=== PATIENT | male | born 1950 | race Caucasian/White ===

== ENCOUNTER 2023-08-05 10:02 | Outpatient (POV) | payer MEDICARE, SELFPAY ==
[2023-08-05 10:11] VITALS: BP 105/59; PULSE 59; RESP 18; O2SAT 95; BMI 25.8
--- NOTE | 2023-08-05 10:31 | A.OFFVIS_ITS ---
HPI Data of Consult Patient: new to practice Consult date: 08/05/23 Requesting Physician: Violette Briseno APRN Primary Care Provider: Quentin Jain Consult Narrative Reason for consult: Neck pain, left shoulder, arm numbness tingling History of present illness: Mr. Moore is a 73 year old male who presents today as a new patient. He is a referral from [facility] office. Today he rates his pain a 9 out of 10. Patient states his biggest issue is the numbness and tingling that radiates from his neck on the left side down his arm. Patient states this is constant and does affect his ability perform activities of daily living such as cooking and cleaning. 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 Patient has tried [id number] Tylenol along with heat and ice and topicals with minimal relief. He does state that he uses IcyHot with mild improvement. Patient has had physical therapy for months and states that he is currently taking a break because it physically wears him out. Patient is currently managed with tramadol and gabapentin from an outside provider. He has had an office steroid injections that do help some however typically are only temporarily improved. Patient does have a pacemaker and was previously on blood thinners however has been off of these for a while and is just on an aspirin 81 mg daily. His Guru has been reviewed and is appropriate. CC: Violette Briseno APRN [facility] Disclaimer: The information contained in this section may have been updated after the patient was seen, as this information can be updated by other users. Medical History (Updated 08/05/23 @ 10:53 by Violette Briseno APRN) Kidney stones Osteoarthritis BPH (benign prostatic hyperplasia) GERD (gastroesophageal reflux disease) CVA (cerebral vascular accident) HTN (hypertension) HLD (hyperlipidemia) Diabetes Surgical History (Updated 08/05/23 @ 10:17 by Alejandra Talbert RN) Hx of appendectomy Family History (Updated 08/05/23 @ 10:17 by Alejandra Talbert RN) Other COPD (chronic obstructive pulmonary disease) Social History Smoking Status: Unknown if ever smoked alcohol intake: never current occupational status: retired Travel in the last 8 weeks: None Review of Systems Review of Systems Review of systems:: pertinent systems reviewed and negative unless documented below Review of systems (narrative): Review of Systems: General: No recent weight changes, no fever, no sleep disturbances Respiratory: No cough, no shortness of air, no recurring pulmonary infections Cardiovascular/peripheral vascular: No chest pain, no palpitations, no edema, no shortness of breath Gastrointestinal: No new onset incontinence, normal bowel movements reported Genitourinary: No new onset incontinence Musculoskeletal: Neck pain, left shoulder, left arm numbness tingling Psychiatric: [Normal mood/affect] Neurological: [Denies weakness in extremities], [denies balance issues] Meds Home Medications and Allergies Home Medications Medication Instructions Recorded Confirmed Type atorvastatin 80 mg tablet 80 mg PO DAILY Cholesterol 08/05/23 08/05/23 History gabapentin 100 mg capsule 100 mg PO BID Pain 08/05/23 08/05/23 History glipizide 5 mg tablet, extended 5 mg PO DIRECTED Diabetes 08/05/23 08/05/23 History release 24 hr lisinopril 10 mg tablet 10 mg PO DIRECTED BLOOD PRESSURE 08/05/23 08/05/23 History magnesium oxide 400 mg PO BID 08/05/23 08/05/23 History metformin 500 mg tablet 500 mg PO DIRECTED Diabetes 08/05/23 08/05/23 History sotalol 80 mg tablet 80 mg PO BID BLOOD PRESSURE 08/05/23 08/05/23 History tamsulosin 0.4 mg capsule 0.4 mg PO DIRECTED URINATION 08/05/23 08/05/23 History tramadol 50 mg tablet 50 mg PO TIDP PRN Pain 08/05/23 08/05/23 History New Prescriptions to Start Prescriptions: Allergies Allergy/AdvReac Type Severity Reaction Status Date / Time No Known Allergies Allergy Verified 08/05/23 10:11 Objective Narrative: Physical Exam: General: Alert and oriented x3, no acute distress, pleasant and cooperative Lungs: Respirations even and unlabored, symmetrical chest expansion Eyes: PERRL Musculoskeletal: Flexion and extension of cervical [spine] somewhat guarded secondary to pain, [antalgic gait noted] positive Spurling's test Neurological: Speech clear, no gross sensory deficit Additional findings Additional findings: MRI cervical spine without contrast 11/30/2022 findings: Paraspinal soft tissues are grossly unremarkable. Moderate levoscoliosis of the cervical thoracic column with loss of normal lordosis. Marrow signal generally age-appropriate C2-3: Disc intact neuroforamen patent C3-C4: Degenerative narrowing of the disc with type II degenerative endplate changes. Moderate circumferential disc bulge partially overlaid by hypertrophic endplate spur which is augmented by a left paracentral/foraminal disc protrusion. Results in moderate to severe spinal stenosis narrowing to the canal about 7/8 mm in the midline. Protrusion abuts the cervical cord with contouring. No definite compression. There is moderate right and severe left foraminal stenosis C4-5: Slight narrowing of the disc with grade 1 anterolisthesis of C4. Broad-based right paracentral disc protrusion augmenting a mild circumferential disc bulge. Mild hypertrophic ligamentous changes. These factors produce moderate to severe spinal stenosis narrowing in the canal to 7 to 8 mm. Mild right and moderate left foraminal stenosis. C5-6: No significant disc abnormality. Mild right foraminal stenosis C6-C7: Degenerative narrowing of the disc. Moderate circumferential disc bulge eccentric to the right partially overlaid by endplate spur. Moderate spinal stenosis with canal narrowed to 9 mm. Mild bilateral foraminal stenosis. C7-T1 through T3/4 disc are unremarkable Assessment and Plan *Assessment and plan (1) Degenerative disc disease, cervical: Status: Acute Category: Medical Code(s): M50.30 - Other cervical disc degeneration, unspecified cervical region (2) Cervical radiculopathy: Status: Acute Category: Medical Code(s): M54.12 - Radiculopathy, cervical region Plan Patient is experiencing significant pain throughout his neck along the left side with radiating symptoms into the his left shoulder and upper extremity. Patient did have limited range of motion of his cervical spine and a positive Spurling's test. I have discussed with the patient that he may benefit from cervical epidural steroid injection. Risk and benefits were discussed with patient and he would like to proceed forward with this plan of care. Patient has tried and failed conservative therapy including recent physical therapy and continued at home exercising and stretching. We will schedule the patient for a RORY C6-C7 under fluoroscopy. I will also order the patient a compounded cream. Patient has been instructed to contact the clinic with any concerns before the next appointment. Dr. Simon has reviewed this note and agrees with this plan of care. This note was dictated using voice recognition software and make contain errors or omissions.
== END 2023-08-05 23:59 | disposition home or self-care (01) ==
LOC: SC.PAIN 10:04
PROVIDERS: PCP Physician Assistant; Visit Provider Nurse Practitioner Family
DX: M50.123 Cervical disc disorder at C6-C7 level with radiculopathy (principal)
CPT/HCPCS: 99202; G0463

== ENCOUNTER → 2023-08-23 10:56 | Day surgery (SDC) | payer MEDICARE, SELFPAY ==
[2023-08-23 11:24] VITALS: BP 125/75; PULSE 60; RESP 18; TEMP 36.6; O2SAT 99; BMI 25.8
--- NOTE | 2023-08-23 11:32 | P.PCN_ITS ---
Procedure Date: 08/23/23 Time: 11:45 Anesthesiologist:: James Florentino CRNA Complications:: None Pre-procedure Diagnosis:: Degenerative disc cervical spine multilevels. Cervical radiculopathy. Post-procedure Diagnosis:: Same. Indications for Procedure:: Patient is a very pleasant 73-year-old male that comes our clinic today for cervical epidural steroid injection. Patient reports posterior cervical pain he describes as constant, dull, aching. Patient also reports radicular symptoms in his left shoulder and arm including the fingers. He rates his pain 9/10. Procedure Details:: Procedure:Cervical epidural steroid injection Informed consent was obtained and the risks and benefits of the procedure were explained to the patient. The patient was taken to the procedure room and noninvasive monitors placed, including noninvasive blood pressure cuff and pulse oximeter. The neck was prepped using Chloraprep as a cleansing solution. The C6- C7 interspace was viewed using fluroscopy. The skin and subcutaneous tissues were anesthetized using lidocaine 1.5% and a 25-gauge needle. After this an 18- gauge Touhy epidural needle was placed into the C6-C7 interspace under fluroscopy guidance and advanced using loss of resistance to air until the epidural space was encountered. After confirmation of needle placement in the epidural space using contrast dye, a solution containing normal saline, 2 mL and Depo-Medrol 80 mg was incrementally injected into the cervical epidural space.~ The patient tolerated the procedure well with no complications. The patient was observed in the Pain Clinic and then discharged home neurologically intact. Plan and Disposition:: Patient was discharged without incident.
[2023-08-23] MEDS: IOPAMIDOL-200 (41%);10ML VIAL 10 ML IV (11:41)
[2023-08-23 11:49] VITALS: BP 136/82; PULSE 60; RESP 18; O2SAT 99
== END | disposition home or self-care (01) ==
PROVIDERS: PCP Physician Assistant; Visit Provider Nurse Anesthetist, Certified Registered
DX: M50.123 Cervical disc disorder at C6-C7 level with radiculopathy (principal)
CPT/HCPCS: 62321; Q9966

== ENCOUNTER 2023-09-14 11:16 | Outpatient (POV) | payer MEDICARE, SELFPAY ==
[2023-09-14 11:54] VITALS: BP 123/63; PULSE 60; RESP 16; O2SAT 98; BMI 25.8
--- NOTE | 2023-09-14 12:35 | A.OFFVIS_ITS ---
[facility] Pain Management SOAP Note Subjective:: Patient is a pleasant 73-year-old male who presents today for follow-up of cervical epidural steroid injection C6-C7 on 08/23/2023. Today he rates his pain a 8 out of 10. Patient denies any new trauma or injury. He states he had at least 50% improvement following this injection however states that it only lasted about 3 days. Patient does state he is back to his baseline with aching and throbbing and numbness and weakness all along the left side into his arm and hand. Patient does state the pain interferes with his ability perform activities of daily living such as cooking and cleaning. Patient is interested in repeating his prior injection that he did feel like he moved around easier and had overall improved function during those 3 days. Patient is currently managed with tramadol 50 mg 3 times a day that was prescribed from his primary care however had been prescribed by our office prior to at the [place] location. He states he is officially out of this medication and asking if we can provide refills. He is also prescribed gabapentin from his PCP. His Guru has been reviewed and is appropriate. Review of Systems: General: No recent weight changes, no fever, no sleep disturbances Respiratory: No cough, no shortness of air, no recurring pulmonary infections Cardiovascular/peripheral vascular: No chest pain, no palpitations, no edema, no shortness of breath Gastrointestinal: No new onset incontinence, normal bowel movements reported Genitourinary: No new onset incontinence Musculoskeletal: Neck pain, left arm pain/weakness Psychiatric: [Normal mood/affect] Neurological: [Denies weakness in extremities], [denies balance issues] Objective:: Physical Exam: General: Alert and oriented x3, no acute distress, pleasant and cooperative Lungs: Respirations even and unlabored, symmetrical chest expansion Eyes: PERRL Musculoskeletal: Flexion and extension of cervical [spine] somewhat guarded secondary to pain, [antalgic gait noted] positive Spurling's test Neurological: Speech clear, no gross sensory deficit Assessment:: Degenerative disc disease of cervical spine with cervical radiculopathy symptoms, cervical spinal stenosis, chronic pain syndrome Plan:: Patient did have 50% relief following his cervical epidural lasting 3 days. Patient is back to having worsening pain in his neck with radiating symptoms into his left extremity with numbness and tingling. Patient did have limited range of motion with a positive Spurling's test. I have discussed with the patient that he may benefit from a repeat cervical epidural steroid injection. Risk and benefits were discussed with the patient and he would like to proceed forward with this plan of care. Will refill the patient's tramadol 50 mg 3 times a day and provide a 3-month supply of this medication. Patient will be submitted to insurance for the cervical epidural steroid injection C5-C6 under fluoroscopy. Risks and benefits of the medication have been explained in detail to the patient. The patient does understand the risk of dependence on the medication when given over a prolonged period. Patient has been advised of risks of oversedation with the prescribed medication. Narcan has been offered to the paitent in the event of oversedation. Patient has been advised that a family member should also be educated regarding administration of Narcan. The patient has been advised to consult with his/her primary care provider and pharmacist regarding drug-drug interaction of medications currently prescribed. Patient has been prescribed a controlled substance after being counseled on the medication, medication safety, and possible side effects. Opioid contract was reviewed and signed by the patient, and that they have agreed to all of the terms set forth by our compliance program. Patient has been instructed to contact the clinic with any concerns before the next appointment. Dr. Simon has reviewed this note and agrees with this plan of care. This note was dictated using voice recognition software and make contain errors or omissions. [facility] Disclaimer: The information contained in this section may have been updated after the patient was seen, as this information can be updated by other users. Medical History Kidney stones Osteoarthritis BPH (benign prostatic hyperplasia) GERD (gastroesophageal reflux disease) CVA (cerebral vascular accident) HTN (hypertension) HLD (hyperlipidemia) Diabetes Surgical History Hx of appendectomy Family History Other COPD (chronic obstructive pulmonary disease) Social History Smoking Status: Unknown if ever smoked alcohol intake: never current occupational status: retired Travel in the last 8 weeks: None
== END 2023-09-14 23:59 | disposition home or self-care (01) ==
PROVIDERS: Visit Provider Nurse Practitioner Family
DX: M50.122 Cervical disc disorder at C5-C6 level with radiculopathy (principal); M48.02 Spinal stenosis, cervical region; G89.4 Chronic pain syndrome
CPT/HCPCS: 99212; G0463

== ENCOUNTER 2023-10-04 10:55 | Day surgery (SDC) | payer MEDICARE, SELFPAY ==
[2023-10-04] MEDS: methylPREDNISolone ACETATE 80MG/ML VIAL 80 MG (11:09)
[2023-10-04 11:12] VITALS: BP 117/73; PULSE 64; RESP 18; O2SAT 98; BMI 26.1
[2023-10-04] MEDS: IOPAMIDOL-200 (41%);10ML VIAL 10 ML IV (11:21)
--- NOTE | 2023-10-04 11:22 | P.PCN_ITS ---
Procedure Date: 10/04/23 Time: 11:20 Anesthesiologist:: James Florentino CRNA Complications:: None Pre-procedure Diagnosis:: Degenerative disc cervical spine multilevels. Cervical radiculopathy. Post-procedure Diagnosis:: Same. Indications for Procedure:: Patient is a pleasant 73-year-old male comes our clinic today for cervical epidural steroid injection. Patient reports responding well to previous injections in the cervical spine. Patient describes cervical neck pain as well as bilateral arm radicular symptoms. He rates his pain 7/10. Procedure Details:: Procedure:Cervical epidural steroid injection Informed consent was obtained and the risks and benefits of the procedure were explained to the patient. The patient was taken to the procedure room and noninvasive monitors placed, including noninvasive blood pressure cuff and pulse oximeter. The neck was prepped using Chloraprep as a cleansing solution. The C6- C7 interspace was viewed using fluroscopy. The skin and subcutaneous tissues were anesthetized using lidocaine 1.5% and a 25-gauge needle. After this an 18- gauge Touhy epidural needle was placed into the C6-C7 interspace under fluroscopy guidance and advanced using loss of resistance to air until the epidural space was encountered. After confirmation of needle placement in the epidural space using contrast dye, a solution containing normal saline, 2 mL and Depo-Medrol 80 mg was incrementally injected into the cervical epidural space.~ The patient tolerated the procedure well with no complications. The patient was observed in the Pain Clinic and then discharged home neurologically intact. Plan and Disposition:: Patient was discharged without incident.
[2023-10-04 11:27] VITALS: BP 122/51; PULSE 63; RESP 18; O2SAT 98
== END 2023-10-04 11:28 | disposition home or self-care (01) ==
PROVIDERS: PCP Physician Assistant; Visit Provider Nurse Anesthetist, Certified Registered
DX: M50.10 Cervical disc disorder with radiculopathy, unspecified cervical region (principal)
CPT/HCPCS: 62321; J1010; Q9966

== ENCOUNTER 2023-10-26 09:25 | Outpatient (POV) | payer MEDICARE, SELFPAY ==
--- NOTE | 2023-10-26 10:03 | A.OFFVIS_ITS ---
[facility] Disclaimer: The information contained in this section may have been updated after the patient was seen, as this information can be updated by other users. Medical History (Updated 10/26/23 @ 10:06 by Violette Briseno APRN) Kidney stones Osteoarthritis BPH (benign prostatic hyperplasia) GERD (gastroesophageal reflux disease) CVA (cerebral vascular accident) HTN (hypertension) HLD (hyperlipidemia) Diabetes Surgical History Hx of appendectomy Family History Other COPD (chronic obstructive pulmonary disease) Social History Smoking Status: Unknown if ever smoked alcohol intake: never current occupational status: retired Travel in the last 8 weeks: None PM Subjective & Objective Subjective Subjective:: Patient is a pleasant 73-year-old male who presents today for follow-up of cervical epidural steroid injection C6-C7 on 10/04/2023. Patient does state that he had about 65% relief from this injection however states that it has worn off at this point. Patient rates his pain today an 8 out of 10 and denies any new trauma or injury. He states he still has the stiffness in and around his neck with numbness and tingling that goes down his entire left extremity and does have complaints of chronic left hand swelling that started after his stroke. Patient does state that these injections do improve function however they have only seem to provide temporary relief. Patient states that the pain is constant and he is interested in any help we may be able to provide. Patient is currently managed with tramadol 50 mg 3 times a day and gabapentin from his PCP he states that this medication is only helps minimally. His Guru has been reviewed and is appropriate. Patient has been given compounded cream and states it helps some. Review of Systems: General: No recent weight changes, no fever, no sleep disturbances Respiratory: No cough, no shortness of air, no recurring pulmonary infections Cardiovascular/peripheral vascular: No chest pain, no palpitations, no edema, no shortness of breath Gastrointestinal: No new onset incontinence, normal bowel movements reported Genitourinary: No new onset incontinence Musculoskeletal: Neck pain, left arm numbness tingling Psychiatric: [Normal mood/affect] Neurological: [Denies weakness in extremities], [denies balance issues] Pain at rest (0-10 scale): 8 Objective Objective:: Physical Exam: General: Alert and oriented x3, no acute distress, pleasant and cooperative Lungs: Respirations even and unlabored, symmetrical chest expansion Eyes: PERRL Musculoskeletal: Flexion and extension of cervical [spine] somewhat guarded secondary to pain, [antalgic gait noted] Neurological: Speech clear, no gross sensory deficit Has patient had previous pain injection?: Yes Percent improvement in pain since last injection: 65 Conservative treatment options previously tried: Home exercise plan Length of treatment: Longer than 12 weeks and Prescription medications Length of treatment: Longer than 12 weeks Meds Home Medications and Allergies Home Medications ?Medication ?Instructions ?Recorded ?Confirmed ?Type atorvastatin 80 mg tablet 80 mg PO DAILY Cholesterol 08/05/23 10/04/23 History gabapentin 100 mg capsule 100 mg PO BID Pain 08/05/23 10/04/23 History glipizide 5 mg tablet, extended 5 mg PO DIRECTED Diabetes 08/05/23 10/04/23 History release 24 hr lisinopril 10 mg tablet 10 mg PO DIRECTED BLOOD PRESSURE 08/05/23 10/04/23 History magnesium oxide 400 mg PO BID 08/05/23 10/04/23 History metformin 500 mg tablet 500 mg PO DIRECTED Diabetes 08/05/23 10/04/23 History sotalol 80 mg tablet 80 mg PO BID BLOOD PRESSURE 08/05/23 10/04/23 History tamsulosin 0.4 mg capsule 0.4 mg PO DIRECTED URINATION 08/05/23 10/04/23 History tramadol 50 mg tablet 50 mg PO TIDP PRN Pain #90 tabs 09/14/23 10/04/23 Rx New Prescriptions to Start Prescriptions: Allergies Allergy/AdvReac Type Severity Reaction Status Date / Time No Known Allergies Allergy Verified 10/04/23 11:09 Assessment and Plan *Assessment and plan (1) Cervical radiculopathy: Status: Acute Category: Medical Code(s): M54.12 - Radiculopathy, cervical region (2) Degenerative disc disease, cervical: Status: Acute Category: Medical Code(s): M50.30 - Other cervical disc degeneration, unspecified cervical region (3) CVA (cerebral vascular accident): Status: Acute Qualifiers: CVA mechanism: unspecified Qualified Code(s): I63.9 - Cerebral infarction, unspecified Category: Medical Code(s): I63.9 - Cerebral infarction, unspecified Plan Due to the patient's history of stroke and chronic left-sided weakness with numbness I have discussed with the patient that he may benefit from a spinal cord stimulator trial. Risk and benefits and educational handouts were given at today's visit. Patient and his family would like to proceed forward with this option. Patient has tried and failed conservative therapy including oral medications, heat and ice, topicals, injection therapy, physical therapy, at home stretching exercise for longer than 12 weeks. We will submit for psychological evaluation and if he is deemed an appropriate candidate we will proceed forward with a trial at a later date. Patient will return to clinic in 1 month for reevaluation of symptoms and plan of care. Patient has been instructed to contact the clinic with any concerns before the next appointment. Dr. Simon has reviewed this note and agrees with this plan of care. This note was dictated using voice recognition software and make contain errors or omissions.
[2023-10-26 10:15] VITALS: BP 108/60; PULSE 61; RESP 18; O2SAT 97; BMI 26.3
== END 2023-10-26 23:59 | disposition home or self-care (01) ==
LOC: SC.PAIN 09:26
PROVIDERS: PCP Physician Assistant; Visit Provider Nurse Practitioner Family
DX: M50.10 Cervical disc disorder with radiculopathy, unspecified cervical region (principal)
CPT/HCPCS: 99212; G0463

== ENCOUNTER 2023-11-24 10:29 | Outpatient (POV) | payer MEDICARE, SELFPAY ==
[2023-11-24 11:05] VITALS: BP 111/69; PULSE 59; RESP 18; O2SAT 96; BMI 25.8
--- NOTE | 2023-11-24 12:15 | A.OFFVIS_ITS ---
[facility] Disclaimer: The information contained in this section may have been updated after the patient was seen, as this information can be updated by other users. Medical History (Updated 11/24/23 @ 12:17 by Violette Briseno APRN) Kidney stones Osteoarthritis BPH (benign prostatic hyperplasia) GERD (gastroesophageal reflux disease) CVA (cerebral vascular accident) HTN (hypertension) HLD (hyperlipidemia) Diabetes Surgical History Hx of appendectomy Family History Other COPD (chronic obstructive pulmonary disease) Social History Smoking Status: Unknown if ever smoked alcohol intake: never current occupational status: retired Travel in the last 8 weeks: None PM Subjective & Objective Subjective Subjective:: Patient is a pleasant 73-year-old male who presents today for follow-up of psychological evaluation. Today he rates his pain a 10 out of 10. Patient denies any new trauma or injury. He does state that he continues to have numbness and tingling along his entire left side due to a history of stroke. Patient does state the pain interferes with his ability perform activities of daily living such as cooking and cleaning. He does state that his pain is constant and he does have difficulty walking due to this numbness and tingling and weakness. Patient does state today that he would like to still proceed forward with the stimulator trial. Patient has tried and failed conservative therapy including oral medications, heat and ice, topicals, physical therapy and continued at home exercising and stretching for longer than 12 weeks. Patient is currently managed with tramadol 50 mg 3 times daily from our office and gabapentin from his primary care. He denies any side effects from this medicat ion. Patient does not need refills at this time. Review of Systems: General: No recent weight changes, no fever, no sleep disturbances Respiratory: No cough, no shortness of air, no recurring pulmonary infections Cardiovascular/peripheral vascular: No chest pain, no palpitations, no edema, no shortness of breath Gastrointestinal: No new onset incontinence, normal bowel movements reported Genitourinary: No new onset incontinence Musculoskeletal: Low back pain, left-sided leg pain/weakness, left arm weakness numbness Psychiatric: [Normal mood/affect] Neurological: [Denies weakness in extremities], [denies balance issues] Pain at rest (0-10 scale): 10 Objective Objective:: Physical Exam: General: Alert and oriented x3, no acute distress, pleasant and cooperative Lungs: Respirations even and unlabored, symmetrical chest expansion Eyes: PERRL Musculoskeletal: Flexion and extension of lumbar [spine] somewhat guarded secondary to pain, [antalgic gait noted] Neurological: Speech clear, no gross sensory deficit Has patient had previous pain injection?: No Conservative treatment options previously tried: Home exercise plan Length of treatment: Longer than 12 weeks Meds Home Medications and Allergies Home Medications ?Medication ?Instructions ?Recorded ?Confirmed ?Type atorvastatin 80 mg tablet 80 mg PO DAILY Cholesterol 08/05/23 10/26/23 History gabapentin 100 mg capsule 100 mg PO BID Pain 08/05/23 10/26/23 History glipizide 5 mg tablet, extended 5 mg PO DIRECTED Diabetes 08/05/23 10/26/23 History release 24 hr lisinopril 10 mg tablet 10 mg PO DIRECTED BLOOD PRESSURE 08/05/23 10/26/23 History magnesium oxide 400 mg PO BID 08/05/23 10/26/23 History metformin 500 mg tablet 500 mg PO DIRECTED Diabetes 08/05/23 10/26/23 History sotalol 80 mg tablet 80 mg PO BID BLOOD PRESSURE 08/05/23 10/26/23 History tamsulosin 0.4 mg capsule 0.4 mg PO DIRECTED URINATION 08/05/23 10/26/23 History tramadol 50 mg tablet 50 mg PO TIDP PRN Pain #90 tabs 09/14/23 11/24/23 Rx New Prescriptions to Start Prescriptions: Allergies Allergy/AdvReac Type Severity Reaction Status Date / Time No Known Allergies Allergy Verified 10/04/23 11:09 Assessment and Plan *Assessment and plan (1) Degenerative disc disease, cervical: Status: Acute Category: Medical Code(s): M50.30 - Other cervical disc degeneration, unspecified cervical region (2) Cervical radiculopathy: Status: Acute Category: Medical Code(s): M54.12 - Radiculopathy, cervical region (3) Lumbar radiculopathy: Status: Acute Category: Medical Code(s): M54.16 - Radiculopathy, lumbar region (4) Degenerative disc disease, lumbar: Status: Acute Category: Medical Code(s): M51.36 - Other intervertebral disc degeneration, lumbar region Plan Patient continues to experience significant pain throughout his low back and left leg as well as left arm. I did review over his psychological evaluation and he was deemed an appropriate candidate for the spinal cord stimulator trial. Patient was gone over with the risk and benefits of this procedure and he would like to proceed forward with this plan of care. Patient is not on any blood thinners other than an 81 mg aspirin. Patient has tried and failed conservative therapy including continued at home stretching exercise for longer than 12 weeks. Patient does state that overall his low back and left leg symptoms may be more bothersome than his upper extremities and would like to focus on this area first. We will submit to insurance for the spinal cord stimulator trial under fluoroscopy. Patient has been instructed to contact the clinic with any concerns before the next appointment. Dr. Simon has reviewed this note and agrees with this plan of care. This note was dictated using voice recognition software and make contain errors or omissions. All injections are used with Lidocaine or Bupivacaine and Depo Medrol.
== END 2023-11-24 23:59 | disposition home or self-care (01) ==
LOC: SC.PAIN 10:30
PROVIDERS: PCP Physician Assistant; Visit Provider Nurse Practitioner Family
DX: M50.10 Cervical disc disorder with radiculopathy, unspecified cervical region (principal); M51.16 Intervertebral disc disorders with radiculopathy, lumbar region; Z73.89 Other problems related to life management difficulty; Z86.73 Personal history of transient ischemic attack (TIA), and cerebral infarction without residual deficits
CPT/HCPCS: 99212; G0463

== ENCOUNTER 2024-01-06 09:16 | Outpatient (CLI) | payer MEDICARE, SELFPAY ==
--- NOTE | 2024-01-06 10:09 | ECG_ITS ---
APPROVED REPORT Exam: Resting ECG HR:60 bpm ECG Measurements Heart Rate 60 AXES [place] 189 P 236 QRSd 89 QRS 23 QT 431 T 21 QTc 431 Conclusion ELECTRONIC ATRIAL PACEMAKER ABNORMAL RHYTHM ECG UNCONFIRMED REPORT Electronically signed by : Deep Holloway MD 01/06/2024 15:21:33
[2024-01-06 10:23] LABS: MANUAL DIFFERENTIAL MANUAL DIFFERENTIAL (MANUAL DIFF)
[2024-01-06 10:35] LABS: Basophils % 0.4 % (0.1-2.0); Eosinophils # 0.2 K/mm3 (0.0-0.4); Eosinophils % 2.8 % (0.1-12.0); Hematocrit 43.1 % (42.0-52.0); Hemoglobin 13.2 g/dL (14.1-18.0); Lymphocytes # 2.7 K/mm3 (0.7-4.5); Mean Corpuscular HGB Conc 30.7 g/dL (31.8-35.4); Mean Corpuscular Hemoglobin 31.9 pg (27.0-31.2); Mean Platelet Volume 9.6 fl (7.4-10.4); Monocytes # 0.4 K/mm3 (0.1-1.0); Monocytes % 5.4 % (1.7-9.3); Neutrophils # 3.5 K/mm3 (1.8-7.8); Neutrophils % 51.4 % (37.0-80.0); Platelet Count 168 K/mm3 (142-424); Red Blood Count 4.14 M/mm3 (4.60-6.20); Red Cell Distribution Width 14.2 % (11.5-17.5); White Blood Count 6.8 K/mm3 (4.8-10.8)
[2024-01-06 10:46] LABS: Alanine Aminotransferase 28 U/L (12-78); Albumin Level 3.8 g/dl (3.5-5.0); Albumin/Globulin Ratio 1.1 (1.1-1.8); Alkaline Phosphatase 103 U/L (38-126); Aspartate Amino Transferase 27 U/L (17-59); Bilirubin,Total 0.6 mg/dl (0.2-1.3); Blood Urea Nitrogen 17 mg/dl (9-20); Calcium 10.8 mg/dl (8.4-10.2); Carbon Dioxide 33 mmol/L (22.0-30.0); Chloride 103 mmol/L (98-107); Estimated Glomerular Filt Rate 66 ml/min (>60); GFR (African American) 79 ML/MIN (>60); Globulin 3.5 g/dL (1.3-3.2); Glucose 157 mg/dl (74-100); Sodium 138 mmol/L (136-145); Total Protein,Serum 7.3 g/dl (6.3-8.2)
[2024-01-06 13:13] LABS: Eosinophils % 1 % (0-3); Lymphocytes % 45 % (10-50); Monocytes % 10 % (2-9); Neutrophils % 42 % (42-76); Total Cells Counted 100
[2024-01-06 13:14] LABS: Anisocytosis 1+; Platelet Estimate Normal; Poikilocytosis 1+
[2024-01-06 13:20] LABS: Burr Cells 1+
== END 2024-01-06 23:59 | disposition home or self-care (01) ==
LOC: PREOP 09:17
PROVIDERS: PCP Physician Assistant; Visit Provider Anesthesiology
DX: M54.16 Radiculopathy, lumbar region (principal); Z01.818 Encounter for other preprocedural examination; Z79.899 Other long term (current) drug therapy
CPT/HCPCS: 80053; 85007; 85014; 85018; 85048; 85049; 93005

== ENCOUNTER 2024-01-13 11:37 | Day surgery (SDC) | payer MEDICARE, SELFPAY ==
[2024-01-06 09:50] VITALS: BMI 25.8
[2024-01-13 12:10] LABS: POC Glucose,Bedside 95 (70-110)
[2024-01-13 12:11] VITALS: BP 144/67; PULSE 61; RESP 18; TEMP 36.3; O2SAT 96
[2024-01-13] MEDS: VANCOMYCIN HCL 1,250 MG in 0.9 % SODIUM CHLORIDE 250 ML 125 MG IV (12:23)
[2024-01-13] MEDS: LACTATED RINGERS 1000ML 1,000 ML 25 ML IV (12:23)
[2024-01-13] MEDS: LIDOCAINE 1% W/EPI 1:100,000 20ML VIAL 40 ML (13:22)
[2024-01-13 13:51] VITALS: BP 153/81; PULSE 62; RESP 16; TEMP 36.4; O2SAT 97
[2024-01-13 14:01] VITALS: BP 155/75; PULSE 60; RESP 16; TEMP 36.4; O2SAT 100
[2024-01-13 14:03] VITALS: BP 180/116; PULSE 60; RESP 16; TEMP 36.4; O2SAT 98
[2024-01-13 14:21] VITALS: BP 144/70; PULSE 60; RESP 16; TEMP 36.4; O2SAT 98
--- NOTE | 2024-01-13 14:27 | EXP.OP.NOTE ---
Date of procedure: 01/13/24 Pre-op Diagnosis:: Degenerative disc disease of the cervical spine with cervical radiculopathy symptoms with post stroke symptoms and left arm radicular pain Post-op Diagnosis:: Same Procedure performed:: Spinal cord stimulator trial with epidural lead placement x 2 Surgeon:: Leonel Simon MD APPLICATIONS DEVELOPMENT CONSULTANT:: Denny Zeng Anesthesia: MAC Estimated blood loss (mL): 1 Clinical Note:: This patient is a pleasant 73-year-old white male who we are seeing for neck pain with cervical radicular symptoms. He has also had 2 strokes. He has poststroke pain down his left arm. He has failed all previous conservative treatments including injections, oral medications, physical therapy and he is not a surgical candidate. He has had a successful psychological evaluation. Will plan on spinal cord stimulator trial to see if this will help with his left arm radicular symptoms and neck pain. Operative findings:: None Operative note:: Informed consent was obtained risk and benefits of the procedure were explained to the patient. The patient was taken the operating room placed prone on the procedure table. He was prepped and draped in sterile fashion. C-arm fluoroscopy was used to view the lumbar spine. The skin and subcutaneous tissues were anesthetized using lidocaine. A 17-gauge epidural needle was inserted and advanced into the T12-L1 interspace. After confirmation of needle placement in the epidural space a stimulating lead was inserted and advanced very easily to the C3 C4-C5-C6 vertebral bodies. A second needle was inserted and advanced again into the T12-L1 interspace. Again after confirmation of needle placement in the epidural space a second stimulating lead was inserted and advanced very easily to the C3 C4-C5-C6 vertebral bodies. 1-lead was midline. 1-lead was made left of midline. We did test on the table with good stimulation in all areas of pain. The leads were secured in place the patient was taken recovery in stable condition. The patient underwent programming by the [employer] agency service representative with good stimulation in all areas of pain. They were using the top contacts in the C3-C4 region. Patient was discharged home neurologic intact with good relief of pain symptoms. Plan and disposition: Will follow-up with this patient in 1 week for lead pull. Will assess efficacy of this trial at that time. Condition: stable Disposition: PACU Complications:: None
--- NOTE | 2024-01-13 22:29 | EXP.ANES.CKL ---
[facility] Disclaimer: The information contained in this section may have been updated after the patient was seen, as this information can be updated by other users. Medical History Normal colonoscopy Kidney stones Osteoarthritis BPH (benign prostatic hyperplasia) GERD (gastroesophageal reflux disease) CVA (cerebral vascular accident) HTN (hypertension) HLD (hyperlipidemia) Surgical History History of colonoscopy History of inguinal hernia repair Hx of appendectomy Family History Other COPD (chronic obstructive pulmonary disease) Social History (Updated 01/13/24 @ 12:11 by Marisol Simms RN) Smoking Status: Never smoker alcohol intake: never substance use type: denies use current occupational status: retired Travel in the last 8 weeks: None [facility] Anesthesia Checklist Patient Identification Patient Identification: Arm Band, Family and Verbal (Name & ) Structural Data Admitted From: Home Planned Operative Procedure/s: Neurostimulator Trial Lead Placement Consent for Planned Operative Procedure(s) Verified: Yes Verified Documents: Surgical Consent and History and Physical NPO Status Verified Time NPO: 00:00 Additional verifications Anesthesia Reactions: No Hx Blood Transfusions: No Blood Transfusion Reaction: No Airway Assessment Mallampati Score:: Class II C-Spine Mobility Assessed: Yes TMJ Mobility Assessed: Yes Dentition: Poor Dentition Neurological Assessment Level of Consciousness: Awake, Alert and Appropriate Anesthesia Plan Anesthesia Risk discussed: Yes Anesthesia Plan: Verified ASA Class: III Anesthesia Type: MAC
== END 2024-01-13 14:38 | disposition home or self-care (01) ==
PROVIDERS: PCP Physician Assistant; Visit Provider Anesthesiology
PROC: (CPT 63650; principal; 2024-01-13 12:30)
DX: M50.10 Cervical disc disorder with radiculopathy, unspecified cervical region (principal); Z86.73 Personal history of transient ischemic attack (TIA), and cerebral infarction without residual deficits
CPT/HCPCS: 63650 ×2; 82962; 96374; C1778; J3370; J7120

== ENCOUNTER 2024-01-19 14:56 | Outpatient (POV) | payer MEDICARE, SELFPAY ==
--- NOTE | 2024-01-19 15:10 | EXP.PAIN.SOA ---
[facility] Disclaimer: The information contained in this section may have been updated after the patient was seen, as this information can be updated by other users. Medical History Normal colonoscopy Kidney stones Osteoarthritis BPH (benign prostatic hyperplasia) GERD (gastroesophageal reflux disease) CVA (cerebral vascular accident) HTN (hypertension) HLD (hyperlipidemia) Surgical History History of colonoscopy History of inguinal hernia repair Hx of appendectomy Family History Other COPD (chronic obstructive pulmonary disease) Social History (Updated 01/13/24 @ 22:31 by Chan Smith CRNA) Smoking Status: Never smoker alcohol intake: never substance use type: denies use current occupational status: retired Travel in the last 8 weeks: None PM Subjective & Objective Subjective Subjective:: Patient is a pleasant 73-year-old male who presents today for follow-up of spinal cord stimulator trial. Today he rates his pain a 4 out of 10. Patient denies any new trauma or injury. Patient states that he has had significant improvement following this procedure and feels like this has made a significant difference in his overall function and quality of life. Patient rates at least 70% improvement. He states that it did significantly improve the numbness along his left neck going down into his arm. He states that he did have some areas still present however it was nothing like what it had been. Patient states that he would like to proceed forward with the implant. Patient states that this has been what is giving him the most relief. Patient is currently managed with tramadol 50 mg 3 times daily from our office and gabapentin from his primary care. He denies any side effects from this medication. Patient does not need refills at this time. Review of Systems: General: No recent weight changes, no fever, no sleep disturbances Respiratory: No cough, no shortness of air, no recurring pulmonary infections Cardiovascular/peripheral vascular: No chest pain, no palpitations, no edema, no shortness of breath Gastrointestinal: No new onset incontinence, normal bowel movements reported Genitourinary: No new onset incontinence Musculoskeletal: Low back pain, left-sided leg pain/weakness, left arm weakness numbness Psychiatric: [Normal mood/affect] Neurological: [Denies weakness in extremities], [denies balance issues] Pain at rest (0-10 scale): 4 Objective Objective:: Physical Exam: General: Alert and oriented x3, no acute distress, pleasant and cooperative Lungs: Respirations even and unlabored, symmetrical chest expansion Eyes: PERRL Musculoskeletal: Flexion and extension of cervical [spine] somewhat guarded secondary to pain, [antalgic gait noted] Neurological: Speech clear, no gross sensory deficit Has patient had previous pain injection?: Yes Percent improvement in pain since last injection: 70 Conservative treatment options previously tried: Home exercise plan Length of treatment: Longer than 12 weeks Meds Home Medications and Allergies Home Medications ?Medication ?Instructions ?Recorded ?Confirmed ?Type atorvastatin 80 mg tablet 80 mg PO DAILY Cholesterol 08/05/23 01/13/24 History gabapentin 100 mg capsule 100 mg PO AM Pain 08/05/23 01/13/24 History magnesium oxide 400 mg PO DAILY 08/05/23 01/06/24 History sotalol 80 mg tablet 80 mg PO BID BLOOD PRESSURE 08/05/23 01/13/24 History tamsulosin 0.4 mg capsule 0.4 mg PO DIRECTED URINATION 08/05/23 01/13/24 History tramadol 50 mg tablet 50 mg PO TIDP PRN Pain #90 tabs 09/14/23 01/13/24 Rx aspirin 81 mg capsule 81 mg PO DAILY 01/06/24 01/13/24 History gabapentin 300 mg capsule 300 mg PO PM 01/13/24 01/13/24 History (Neurontin) loratadine 10 mg tablet (Claritin) 10 mg PO NEEDED PRN Allergic 01/13/24 01/13/24 History Symptoms meclizine 25 mg tablet 25 mg PO DAILY 01/13/24 01/13/24 History New Prescriptions to Start Prescriptions: Allergies Allergy/AdvReac Type Severity Reaction Status Date / Time No Known Allergies Allergy Verified 01/13/24 12:46 Assessment and Plan *Assessment and plan (1) Degenerative disc disease, lumbar: Status: Acute Category: Medical Code(s): M51.36 - Other intervertebral disc degeneration, lumbar region (2) Lumbar radiculopathy: Status: Acute Category: Medical Code(s): M54.16 - Radiculopathy, lumbar region (3) CVA (cerebral vascular accident): Status: Acute Qualifiers: CVA mechanism: unspecified Qualified Code(s): I63.9 - Cerebral infarction, unspecified Category: Medical Code(s): I63.9 - Cerebral infarction, unspecified (4) Degenerative disc disease, cervical: Status: Acute Category: Medical Code(s): M50.30 - Other cervical disc degeneration, unspecified cervical region (5) Cervical radiculopathy: Status: Acute Category: Medical Code(s): M54.12 - Radiculopathy, cervical region Plan Patient has had significant improvement following his spinal cord stimulator and would like to proceed forward with the stimulator implant. Patient has tried and failed conservative therapy including oral medications, heat and ice, topicals, physical therapy and continued at home exercising and stretching for longer than 12 weeks. I will also send in refills of his tramadol and provide a 1 month supply of this medication. We will submit for the spinal cord stimulator implant and contact the patient with official date and time once we have approval. Patient agrees with this plan of care. Patient has been instructed to contact the clinic with any concerns before the next appointment. Dr. Simon has reviewed this note and agrees with this plan of care. This note was dictated using voice recognition software and make contain errors or omissions. All injections are used with Lidocaine or Bupivacaine and Depo Medrol.
[2024-01-19 15:27] VITALS: BP 154/91; PULSE 62; RESP 18; O2SAT 97; BMI 25.8
== END 2024-01-19 23:59 | disposition home or self-care (01) ==
PROVIDERS: PCP Physician Assistant; Visit Provider Nurse Practitioner Family
DX: I63.9 Cerebral infarction, unspecified; M51.16 Intervertebral disc disorders with radiculopathy, lumbar region; M50.10 Cervical disc disorder with radiculopathy, unspecified cervical region
CPT/HCPCS: 99212; 99213; G0463

== ENCOUNTER 2024-03-09 12:14 | Outpatient (CLI) | payer MEDICARE, SELFPAY ==
[2024-03-09 13:16] VITALS: BMI 26.6
[2024-03-09 14:35] LABS: Chloride 106 mmol/L (98-107)
[2024-03-09 14:36] LABS: Potassium 4.2 mmoL/L (3.5-5.1); Sodium 142 mmol/L (136-145)
[2024-03-09 14:39] LABS: Anion Gap 8.2 mEq/L (5-15); Blood Urea Nitrogen 15 mg/dl (9-20); Calcium 10.9 mg/dl (8.4-10.2); Carbon Dioxide 32 mmol/L (22.0-30.0); Creatinine Clearance Estimated 58 mL/min (50-200); Estimated Glomerular Filt Rate 59 ml/min (>60); GFR (African American) 72 ML/MIN (>60); Glucose 149 mg/dl (74-100)
[2024-03-09 14:44] LABS: Basophils % 0.6 % (0.1-2.0); Eosinophils # 0.1 K/mm3 (0.0-0.4); Eosinophils % 1.7 % (0.1-12.0); Hematocrit 37.3 % (42.0-52.0); Hemoglobin 12.6 g/dL (14.1-18.0); Lymphocytes # 2.1 K/mm3 (0.7-4.5); Lymphocytes % 33.3 % (10-50); Mean Corpuscular HGB Conc 33.7 g/dL (31.8-35.4); Mean Corpuscular Hemoglobin 32.9 pg (27.0-31.2); Mean Corpuscular Volume 97.6 fl (80-94); Mean Platelet Volume 10.7 fl (7.4-10.4); Monocytes # 0.3 K/mm3 (0.1-1.0); Monocytes % 5.4 % (1.7-9.3); Neutrophils # 3.7 K/mm3 (1.8-7.8); Platelet Count 179 K/mm3 (142-424); Red Blood Count 3.82 M/mm3 (4.60-6.20); Red Cell Distribution Width 14.1 % (11.5-17.5); White Blood Count 6.3 K/mm3 (4.8-10.8)
== END 2024-03-09 23:59 | disposition home or self-care (01) ==
LOC: PREOP 12:16
PROVIDERS: Nurse Anesthetist, Certified Registered; PCP Physician Assistant; Visit Provider Anesthesiology
DX: M54.12 Radiculopathy, cervical region (principal)
CPT/HCPCS: 80048; 85025

== ENCOUNTER 2024-03-16 08:31 | Day surgery (SDC) | payer MEDICARE, SELFPAY ==
[2024-03-09 12:58] VITALS: BMI 26.6
--- NOTE | 2024-03-16 08:55 | EXP.ANES.CKL ---
[facility] Disclaimer: The information contained in this section may have been updated after the patient was seen, as this information can be updated by other users. Medical History (Updated 03/09/24 @ 12:55 by Lisandro Morton RN) Pacemaker Normal colonoscopy Kidney stones Osteoarthritis BPH (benign prostatic hyperplasia) GERD (gastroesophageal reflux disease) CVA (cerebral vascular accident) HTN (hypertension) HLD (hyperlipidemia) Surgical History History of colonoscopy History of inguinal hernia repair Hx of appendectomy Family History Other COPD (chronic obstructive pulmonary disease) Social History (Updated 03/09/24 @ 12:57 by Lisandro Morton RN) Smoking Status: Never smoker alcohol intake: never substance use type: denies use current occupational status: retired Travel in the last 8 weeks: None Have you lived/traveled outside US in past 30 days?: No Contact w/someone who lives/traveled outside US past 30 days?: No Exposure to someone with infectious disease in past 14 days?: No Do you have a fever (greater than 100.4 F or 38 C)?: No Have you tested positive for COVID-19: No Exposed to someone with COVID-19 in past 14 days?: No Do you have a sore throat?: No Do you have a cough?: No Do you have any weakness?: No Do you have any diarrhea?: No Are you experiencing any unusual bleeding?: No Do you have any muscle aches/pain?: No Do you have any abdominal pain?: No Are you experiencing loss of taste or smell?: No [facility] Anesthesia Checklist Patient Identification Patient Identification: Arm Band, Family and Verbal (Name & ) Structural Data Admitted From: Home Planned Operative Procedure/s: SC stim implants Consent for Planned Operative Procedure(s) Verified: Yes Verified Documents: Surgical Consent and History and Physical NPO Status Verified Time NPO: 19:00 Chart Verification Results Verified: CBC, BMP and ECG Additional verifications Patient : No Anesthesia Reactions: No Hx Blood Transfusions: No Blood Transfusion Reaction: No Cardiovascular Assessment Heart Sounds: S1 & S2 Pulse Rhythm: Irregular Peripheral Edema: No Airway Assessment Mallampati Score:: Class II C-Spine Mobility Assessed: Yes TMJ Mobility Assessed: Yes Dentition: Poor Dentition (~4 teeth present. Nothing loose per pt.) Neurological Assessment Level of Consciousness: Awake, Alert, Appropriate and Follows Commands Hx Seizures: No Numbness or tingling in extremities: No Anesthesia Plan Anesthesia Risk discussed: Yes Anesthesia Plan: Verified ASA Class: III Anesthesia Type: MAC
[2024-03-16 08:58] VITALS: BP 142/73; PULSE 60; RESP 16; TEMP 36.4; O2SAT 97
[2024-03-16] MEDS: LACTATED RINGERS 1000ML 1,000 ML 25 ML IV (09:06)
[2024-03-16] MEDS: VANCOMYCIN/WATER FOR INJ (PEG) 1.25 GM/250 ML PIGGYBACK IV (09:07)
[2024-03-16 09:15] LABS: POC Glucose,Bedside 119 (70-110)
[2024-03-16] MEDS: LIDOCAINE 1% W/EPI 1:100,000 20ML VIAL 40 ML (11:36)
[2024-03-16] MEDS: GENTAMICIN 80 MG/2 ML VIAL (11:37)
[2024-03-16] MEDS: SODIUM CHLORIDE 0.9% 20ML VIAL 40 ML IV (11:37)
[2024-03-16 12:15] VITALS: BP 144/72; PULSE 63; RESP 18; TEMP 36.2; O2SAT 96
[2024-03-16 12:25] VITALS: BP 128/74; PULSE 62; RESP 18; O2SAT 96
[2024-03-16 12:35] VITALS: BP 128/68; PULSE 63; RESP 18; O2SAT 96
[2024-03-16 13:40] VITALS: BP 125/72; PULSE 60; RESP 18; O2SAT 95
--- NOTE | 2024-03-16 14:52 | P.OP_ITS ---
Date of procedure: 03/16/24 Pre-op Diagnosis:: Degenerative disc disease of the cervical spine with cervical radiculopathy symptoms Post-op Diagnosis:: Same Procedure performed:: Permanent placement spinal cord stimulator with epidural lead placement x 2 and stimulator generator placement Surgeon:: Leonel Simon MD SENIOR MAINTENANCE MECHANIC:: Latashabennie Lemus Anesthesia: MAC Estimated blood loss (mL): 5 Clinical Note:: This patient is a pleasant 73-year-old white male who we are treating for neck pain with cervical radicular symptoms and headaches. He has failed all previous conservative treatments including injections, oral medications, physical therapy and he is not a candidate for surgery. He has had a successful psychological evaluation and a successful spinal cord stimulator trial. He presents for permanent placement of a spinal cord stimulator today. This is with the [employer] system. Operative findings:: None Operative note:: Informed consent was obtained and the risk and benefits of the procedure were explained to the patient. The patient was taken the operating room placed prone on the procedure table. He was prepped and draped in sterile fashion. C-arm f luoroscopy was used to view the lumbar spine. Adjacent to the L1-L2 interspace the skin and subcutaneous tissues were anesthetized using lidocaine. I made an incision dissected down to the lumbar paraspinous fascia. A 17-gauge epidural needle was inserted and advanced into the L1-L2 interspace after confirmation of needle placement in the epidural space a stimulating lead was inserted and with the aid of a percutaneous lead introducer we advanced the lead to the C2-C3-C4 vertebral bodies. Lead was in good position it was right of midline and posterior. A second needle was inserted and advanced again into the L1-L2 interspace. Again after confirmation of needle placement in the epidural space a second stimulator lead was inserted and with the aid of a percutaneous lead introducer we advanced the lead to the C2-C3-C4 vertebral body. Again the lead was in good position it was left of midline and it was posterior. The needles and stylets were removed the leads were secured to the fascia with an anchor device and 2-0 Prolene. I created the generator pocket on the right flank. I tunneled the leads from the back to the generator pocket attached to leads to the generator. Impedances were checked and found to be okay. The generator is placed in the pocket both incisions were irrigated antibiotic solution. Both incisions were then closed with 2-0 Vicryl followed by 4-0 nylon and idris. The patient tolerated the procedure well with no complications. Patient was programmed by the [employer] automotive leasing sales representative with good stimulation in all areas of pain. Patient was discharged home neurologic intact with good relief of pain symptoms. Plan and disposition: Will follow-up with this patient in 1 week for wound check and reprogramming. Will follow-up in 2 to 3 weeks for suture and staple removal. Condition: stable Disposition: PACU Complications:: none
== END 2024-03-16 13:40 | disposition home or self-care (01) ==
PROVIDERS: PCP Physician Assistant; Visit Provider Anesthesiology
PROC: (CPT 63650; principal; 2024-03-16 09:30)
DX: M50.10 Cervical disc disorder with radiculopathy, unspecified cervical region (principal)
CPT/HCPCS: 63650 ×2; 63685; 82962; 96374; C1778; C1820; J1580; J3010; J3372; J7120; S0028

== ENCOUNTER 2024-03-23 14:18 | Outpatient (POV) | payer MEDICARE, SELFPAY ==
[2024-03-23 15:04] VITALS: BP 116/76; PULSE 76; RESP 14; O2SAT 92; BMI 26.6
--- NOTE | 2024-03-23 15:25 | A.OFFVIS_ITS ---
[facility] Disclaimer: The information contained in this section may have been updated after the patient was seen, as this information can be updated by other users. Medical History Pacemaker Normal colonoscopy Kidney stones Osteoarthritis BPH (benign prostatic hyperplasia) GERD (gastroesophageal reflux disease) CVA (cerebral vascular accident) HTN (hypertension) HLD (hyperlipidemia) Surgical History History of colonoscopy History of inguinal hernia repair Hx of appendectomy Family History Other COPD (chronic obstructive pulmonary disease) Social History Smoking Status: Never smoker alcohol intake: never substance use type: denies use current occupational status: other Travel in the last 8 weeks: None PM Subjective & Objective Subjective Subjective:: Patient is a pleasant 73-year-old male who presents today for 1 week postop of spinal cord stimulator implant. Today he rates his pain a 3 out of 10. He denies any injury or trauma following his surgical procedure. He does state the programming is working well however he is meeting with [employer] civil rights representative for additional programming. Patient does state the numbness has seemed to improve from having this placed. Patient is currently managed with tramadol 50 mg 3 times daily and states that this does help additionally. His Guru has been reviewed and is appropriate. Review of Systems: General: No recent weight changes, no fever, no sleep disturbances Respiratory: No cough, no shortness of air, no recurring pulmonary infections Cardiovascular/peripheral vascular: No chest pain, no palpitations, no edema, no shortness of breath Gastrointestinal: No new onset incontinence, normal bowel movements reported Genitourinary: No new onset incontinence Musculoskeletal: Low back pain, neck pain Psychiatric: [Normal mood/affect] Neurological: [Denies weakness in extremities], [denies balance issues] Pain at rest (0-10 scale): 3 Objective Objective:: Physical Exam: General: Alert and oriented x3, no acute distress, pleasant and cooperative Lungs: Respirations even and unlabored, symmetrical chest expansion Eyes: PERRL Musculoskeletal: Flexion and extension of lumbar [spine] somewhat guarded secondary to pain, [antalgic gait noted] Neurological: Speech clear, no gross sensory deficit Skin: Incision sites are clean, dry, well-approximated with sutures and idris intact and minimal erythema noted Has patient had previous pain injection?: No Conservative treatment options previously tried: Home exercise plan Length of treatment: Longer than 12 weeks Meds Home Medications and Allergies Home Medications ?Medication ?Instructions ?Recorded ?Confirmed ?Type atorvastatin 80 mg tablet 80 mg PO DAILY Cholesterol 08/05/23 03/23/24 History gabapentin 100 mg capsule 100 mg PO AM Pain 08/05/23 03/23/24 History magnesium oxide 400 mg PO DAILY 08/05/23 03/23/24 History sotalol 80 mg tablet 80 mg PO BID BLOOD PRESSURE 08/05/23 03/23/24 History tamsulosin 0.4 mg capsule 0.4 mg PO DIRECTED URINATION 08/05/23 03/23/24 History aspirin 81 mg capsule 81 mg PO DAILY 01/06/24 03/23/24 History gabapentin 300 mg capsule 300 mg PO PM 01/13/24 03/23/24 History (Neurontin) loratadine 10 mg tablet (Claritin) 10 mg PO NEEDED PRN Allergic 01/13/24 03/23/24 History Symptoms tramadol 50 mg tablet 50 mg PO TIDP PRN Pain #90 tabs 01/19/24 03/23/24 Rx New Prescriptions to Start Prescriptions: Allergies Allergy/AdvReac Type Severity Reaction Status Date / Time No Known Allergies Allergy Verified 03/16/24 08:56 Assessment and Plan *Assessment and plan (1) Degenerative disc disease, lumbar: Status: Acute Category: Medical Code(s): M51.369 - Other intervertebral disc degeneration, lumbar region without mention of lumbar back pain or lower extremity pain (2) Lumbar radiculopathy: Status: Acute Category: Medical Code(s): M54.16 - Radiculopathy, lumbar region (3) Degenerative disc disease, cervical: Status: Acute Category: Medical Code(s): M50.30 - Other cervical disc degeneration, unspecified cervical region (4) CVA (cerebral vascular accident): Status: Acute Qualifiers: CVA mechanism: unspecified Qualified Code(s): I63.9 - Cerebral infarction, unspecified Category: Medical Code(s): I63.9 - Cerebral infarction, unspecified (5) Cervical radiculopathy: Status: Acute Category: Medical Code(s): M54.12 - Radiculopathy, cervical region Plan Patient was counseled to continue his postop restrictions the full 6 weeks. Patient was able to be reprogrammed by [employer] civil rights representative with better coverage. Patient will also be refilled on his tramadol with the 3-month supply of this medication prescribed. Patient will return to clinic in 2 weeks for suture and staple removal. Risks and benefits of the medication have been explained in detail to the patient. The patient does understand the risk of dependence on the medication when given over a prolonged period. Patient has been advised of risks of oversedation with the prescribed medication. Narcan has been offered to the paitent in the event of oversedation. Patient has been advised that a family member should also be educated regarding administration of Narcan. The patient has been advised to consult with his/her primary care provider and pharmacist regarding drug-drug interaction of medications currently prescribed. Patient has been prescribed a controlled substance after being counseled on the medication, medication safety, and possible side effects. Opioid contract was reviewed and signed by the patient, and that they have agreed to all of the terms set forth by our compliance program. A UDS is needed to verify patient's compliance with our office pain contract. This is ordered based off specific treatments related to chronic pain with the potential to abuse certain medications. Patient has been instructed to contact the clinic with any concerns before the next appointment. Dr. Simon has reviewed this note and agrees with this plan of care. This note was dictated using voice recognition software and make contain errors or omissions.
== END 2024-03-23 23:59 | disposition home or self-care (01) ==
PROVIDERS: PCP Physician Assistant; Visit Provider Nurse Practitioner Family
DX: I63.9 Cerebral infarction, unspecified (principal); M51.16 Intervertebral disc disorders with radiculopathy, lumbar region; M50.10 Cervical disc disorder with radiculopathy, unspecified cervical region
CPT/HCPCS: 99212; G0463

== ENCOUNTER 2024-04-12 13:22 | Outpatient (POV) | payer MEDICARE, SELFPAY ==
--- NOTE | 2024-04-12 13:36 | EXP.PAIN.SOA ---
[facility] Disclaimer: The information contained in this section may have been updated after the patient was seen, as this information can be updated by other users. Medical History Pacemaker Normal colonoscopy Kidney stones Osteoarthritis BPH (benign prostatic hyperplasia) GERD (gastroesophageal reflux disease) CVA (cerebral vascular accident) HTN (hypertension) HLD (hyperlipidemia) Surgical History History of colonoscopy History of inguinal hernia repair Hx of appendectomy Family History Other COPD (chronic obstructive pulmonary disease) Social History Smoking Status: Never smoker alcohol intake: never substance use type: denies use current occupational status: other Travel in the last 8 weeks: None PM Subjective & Objective Subjective Subjective:: Patient is a pleasant 73-year-old male who presents today for 3 week postop of spinal cord stimulator implant. Today he rates his pain a 8 out of 10. He denies any injury or trauma from our last visit. He did state that he has [employer] stimulator still working well with the current programming however states it could use some additional adjustment.. Patient is currently managed with tramadol 50 mg 3 times daily and states that this does help additionally. His Guru has been reviewed and is appropriate. Review of Systems: General: No recent weight changes, no fever, no sleep disturbances Respiratory: No cough, no shortness of air, no recurring pulmonary infections Cardiovascular/peripheral vascular: No chest pain, no palpitations, no edema, no shortness of breath Gastrointestinal: No new onset incontinence, normal bowel movements reported Genitourinary: No new onset incontinence Musculoskeletal: Low back pain, neck pain Psychiatric: [Normal mood/affect] Neurological: [Denies weakness in extremities], [denies balance issues] Pain at rest (0-10 scale): 8 Objective Objective:: Physical Exam: General: Alert and oriented x3, no acute distress, pleasant and cooperative Lungs: Respirations even and unlabored, symmetrical chest expansion Eyes: PERRL Musculoskeletal: Flexion and extension of lumbar [spine] somewhat guarded secondary to pain, [antalgic gait noted] Neurological: Speech clear, no gross sensory deficit Has patient had previous pain injection?: No Conservative treatment options previously tried: Home exercise plan Length of treatment: Longer than 12 weeks Meds Home Medications and Allergies Home Medications ?Medication ?Instructions ?Recorded ?Confirmed ?Type atorvastatin 80 mg tablet 80 mg PO DAILY Cholesterol 08/05/23 03/23/24 History gabapentin 100 mg capsule 100 mg PO AM Pain 08/05/23 03/23/24 History magnesium oxide 400 mg PO DAILY 08/05/23 03/23/24 History sotalol 80 mg tablet 80 mg PO BID BLOOD PRESSURE 08/05/23 03/23/24 History tamsulosin 0.4 mg capsule 0.4 mg PO DIRECTED URINATION 08/05/23 03/23/24 History aspirin 81 mg capsule 81 mg PO DAILY 01/06/24 03/23/24 History gabapentin 300 mg capsule 300 mg PO PM 01/13/24 03/23/24 History (Neurontin) loratadine 10 mg tablet (Claritin) 10 mg PO NEEDED PRN Allergic 01/13/24 03/23/24 History Symptoms tramadol 50 mg tablet 50 mg PO TID #90 tabs 03/23/24 Rx tramadol 50 mg tablet 50 mg PO TIDP PRN Pain #90 tabs 03/23/24 Rx New Prescriptions to Start Prescriptions: Allergies Allergy/AdvReac Type Severity Reaction Status Date / Time No Known Allergies Allergy Verified 03/16/24 08:56 Assessment and Plan *Assessment and plan (1) Lumbar radiculopathy: Status: Acute Category: Medical Code(s): M54.16 - Radiculopathy, lumbar region (2) Degenerative disc disease, lumbar: Status: Acute Category: Medical Code(s): M51.369 - Other intervertebral disc degeneration, lumbar region without mention of lumbar back pain or lower extremity pain Plan Patient was able to have his idris and sutures removed during today's visit. We did summer counselor him to continue his postop restrictions the full 6 weeks until his incisions are completely healed. Patient acknowledges understanding. Patient was given a 3-month supply of the tramadol at his last visit and does not need refills. Patient will return to clinic in 1 month for reevaluation of symptoms and plan of care. We will also make sure that [employer] is present for this appointment for additional reprogramming. Patient has been instructed to contact the clinic with any concerns before the next appointment. Dr. Simon has reviewed this note and agrees with this plan of care. This note was dictated using voice recognition software and make contain errors or omissions. All injections are used with Lidocaine, Bupivacaine and Depo Medrol. Occasionally urine drug screen is needed to verify patient's compliance with our office pain contract. This is ordered based off specific treatments related to chronic pain with the potential to abuse certain medications.
[2024-04-12 14:50] VITALS: BP 106/60; PULSE 64; RESP 16; O2SAT 96; BMI 25.8
== END 2024-04-12 23:59 | disposition home or self-care (01) ==
LOC: SC.PAIN 13:24
PROVIDERS: PCP Physician Assistant; Visit Provider Nurse Practitioner Family
DX: M51.16 Intervertebral disc disorders with radiculopathy, lumbar region (principal)
CPT/HCPCS: 99212; 99213; G0463

== ENCOUNTER 2024-05-11 14:07 | Outpatient (POV) | payer MEDICARE, SELFPAY ==
--- NOTE | 2024-05-11 14:16 | EXP.PAIN.SOA ---
[facility] Disclaimer: The information contained in this section may have been updated after the patient was seen, as this information can be updated by other users. Medical History Pacemaker Normal colonoscopy Kidney stones Osteoarthritis BPH (benign prostatic hyperplasia) GERD (gastroesophageal reflux disease) CVA (cerebral vascular accident) HTN (hypertension) HLD (hyperlipidemia) Surgical History History of colonoscopy History of inguinal hernia repair Hx of appendectomy Family History Other COPD (chronic obstructive pulmonary disease) Social History Smoking Status: Never smoker alcohol intake: never substance use type: denies use current occupational status: other Travel in the last 8 weeks: None Have you lived/traveled outside [place] in past 30 days?: No Contact w/someone who lives/traveled outside [place] past 30 days?: No Exposure to someone with infectious disease in past 14 days?: No Do you have a fever (greater than 100.4 F or 38 C)?: No Have you tested positive for COVID-19: No Exposed to someone with COVID-19 in past 14 days?: No Do you have a sore throat?: No Do you have a cough?: No Do you have any weakness?: No Do you have any diarrhea?: No Are you experiencing any unusual bleeding?: No Do you have any muscle aches/pain?: No Do you have any abdominal pain?: No Are you experiencing loss of taste or smell?: No PM Subjective & Objective Subjective Subjective:: Patient is a pleasant 73-year-old male who presents today for follow-up. Today he rates his pain a 2 out of 10 however does state the pain will get much worse with increased activity. He denies any new trauma or injury. He does state he continues to still have more bothersome numbness in his left upper extremity currently related to the stroke he had years ago. He does state the pain is interfering with his ability perform activities of daily living such as cooking and cleaning. He also makes mention that he still has trouble getting up walking for long periods of time. he does present today for additional reprogramming with [employer] on his spinal cord stimulator. He is also managed with tramadol 50 mg 3 times a day from our office. He denies any side effects and does state that this does seem to help. His Guru has been reviewed and is appropriate. Review of Systems: General: No recent weight changes, no fever, no sleep disturbances Respiratory: No cough, no shortness of air, no recurring pulmonary infections Cardiovascular/peripheral vascular: No chest pain, no palpitations, no edema, no shortness of breath Gastrointestinal: No new onset incontinence, normal bowel movements reported Genitourinary: No new onset incontinence Musculoskeletal: Low back pain, left-sided numbness Psychiatric: [Normal mood/affect] Neurological: [Denies weakness in extremities], [denies balance issues] Pain at rest (0-10 scale): 5 Objective Objective:: Physical Exam: General: Alert and oriented x3, no acute distress, pleasant and cooperative Lungs: Respirations even and unlabored, symmetrical chest expansion Eyes: PERRL Musculoskeletal: Flexion and extension of cervical [spine] somewhat guarded secondary to pain, [antalgic gait noted] positive Spurling's test Neurological: Speech clear, no gross sensory deficit Has patient had previous pain injection?: No Conservative treatment options previously tried: Home exercise plan Length of treatment: Longer than 12 weeks Meds Home Medications and Allergies Home Medications ?Medication ?Instructions ?Recorded ?Confirmed ?Type atorvastatin 80 mg tablet 80 mg PO DAILY Cholesterol 08/05/23 05/11/24 History gabapentin 100 mg capsule 100 mg PO AM Pain 08/05/23 05/11/24 History magnesium oxide 400 mg PO DAILY 08/05/23 05/11/24 History sotalol 80 mg tablet 80 mg PO BID BLOOD PRESSURE 08/05/23 05/11/24 History tamsulosin 0.4 mg capsule 0.4 mg PO DIRECTED URINATION 08/05/23 05/11/24 History aspirin 81 mg capsule 81 mg PO DAILY 01/06/24 05/11/24 History gabapentin 300 mg capsule 300 mg PO PM 01/13/24 05/11/24 History (Neurontin) loratadine 10 mg tablet (Claritin) 10 mg PO NEEDED PRN Allergic 01/13/24 05/11/24 History Symptoms tramadol 50 mg tablet 50 mg PO TID #90 tabs 05/11/24 Rx New Prescriptions to Start Prescriptions: tramadol Briseno,Violette A Allergies Allergy/AdvReac Type Severity Reaction Status Date / Time No Known Allergies Allergy Verified 05/11/24 14:32 Assessment and Plan *Assessment and plan (1) Degenerative disc disease, lumbar: Status: Acute Category: Medical Code(s): M51.369 - Other intervertebral disc degeneration, lumbar region without mention of lumbar back pain or lower extremity pain (2) Lumbar radiculopathy: Status: Acute Category: Medical Code(s): M54.16 - Radiculopathy, lumbar region (3) Degenerative disc disease, cervical: Status: Acute Category: Medical Code(s): M50.30 - Other cervical disc degeneration, unspecified cervical region (4) Cervical radiculopathy: Status: Acute Category: Medical Code(s): M54.12 - Radiculopathy, cervical region Plan Patient was able to have his stimulator reprogrammed with better coverage. We will continue to follow-up with him on this programming at future visits. Patient did have more significant with complaints of the numbness and tingling that radiates down the entire left extremity. Patient did have limited range of motion of his cervical spine and a positive Spurling's test. I did discuss with the patient that we can see about repeat cervical epidural steroid injection to provide additional improvement. Patient had his last injection back in October 2023 that did provide 65% improvement and did help ease down some of the symptoms. Patient did have improved function following that and did state that it was beneficial. I will submit to insurance for a repeat RORY C5-C6 under fluoroscopy. I will also send in a physical therapy evaluation and treatment of his low back and leg symptoms due to increased weakness. Patient does like the physical therapy office they are in [facility]. We will send him with a paper order. I will send in an additional refill on his tramadol 50 mg 3 times a day and provide a 3-month supply of this medication. Risks and benefits of the medication have been explained in detail to the patient. The patient does understand the risk of dependence on the medication when given over a prolonged period. Patient has been advised of risks of oversedation with the prescribed medication. Narcan has been offered to the paitent in the event of oversedation. Patient has been advised that a family member should also be educated regarding administration of Narcan. The patient has been advised to consult with his/her primary care provider and pharmacist regarding drug-drug interaction of medications currently prescribed. Patient has been prescribed a controlled substance after being counseled on the medication, medication safety, and possible side effects. Opioid contract was reviewed and signed by the patient, and that they have agreed to all of the terms set forth by our compliance program. A UDS is needed to verify patient's compliance with our office pain contract. This is ordered based off specific treatments related to chronic pain with the potential to abuse certain medications. Patient has been instructed to contact the clinic with any concerns before the next appointment. Dr. Simon has reviewed this note and agrees with this plan of care. This note was dictated using voice recognition software and make contain errors or omissions.
[2024-05-11 14:33] VITALS: BP 109/71; PULSE 63; RESP 16; O2SAT 93; BMI 26.6
== END 2024-05-11 23:59 | disposition home or self-care (01) ==
PROVIDERS: PCP Physician Assistant; Visit Provider Nurse Practitioner Family
DX: M51.16 Intervertebral disc disorders with radiculopathy, lumbar region (principal); M50.10 Cervical disc disorder with radiculopathy, unspecified cervical region; Z73.89 Other problems related to life management difficulty
CPT/HCPCS: 99212; G0463

== ENCOUNTER 2024-06-12 11:53 | Day surgery (SDC) | payer MEDICARE, SELFPAY ==
[2024-06-12 12:03] VITALS: BP 116/68; PULSE 67; RESP 16; TEMP 37.1; O2SAT 95; BMI 26.8
[2024-06-12] MEDS: IOPAMIDOL-200 (41%);10ML VIAL 10 ML IV (12:13)
--- NOTE | 2024-06-12 12:17 | P.PCN_ITS ---
Procedure Date: 06/12/24 Time: 12:10 Anesthesiologist:: James Florentino CRNA Complications:: None Pre-procedure Diagnosis:: Degenerative disc cervical spine multilevels. Cervical radiculopathy. Cervical postlaminectomy syndrome. Cervical spinal cord stimulator. Post-procedure Diagnosis:: Same. Indications for Procedure:: Patient is a very pleasant 73-year-old male who comes our clinic today for cervical epidural steroid injection. Patient describes posterior cervical neck pain as constant, dull, aching. He also reports bilateral shoulder radicular symptoms. Patient does have a functioning cervical spinal cord stimulator. He is requesting a appointment with the spinal cord stimulator rep for reprogramming. We will schedule this for him today. Procedure Details:: Procedure:Cervical epidural steroid injection Informed consent was obtained and the risks and benefits of the procedure were explained to the patient. The patient was taken to the procedure room and noninvasive monitors placed, including noninvasive blood pressure cuff and pulse oximeter. The neck was prepped using Chloraprep as a cleansing solution. The C6- C7 interspace was viewed using fluroscopy. The skin and subcutaneous tissues were anesthetized using lidocaine 1.5% and a 25-gauge needle. After this an 18- gauge Touhy epidural needle was placed into the C6-C7 interspace under fluroscopy guidance and advanced using loss of resistance to air until the e pidural space was encountered. After confirmation of needle placement in the epidural space using contrast dye, a solution containing normal saline, 2 mL and Depo-Medrol 80 mg was incrementally injected into the cervical epidural space.~ The patient tolerated the procedure well with no complications. The patient was observed in the Pain Clinic and then discharged home neurologically intact. Plan and Disposition:: Patient was discharged without incident.
[2024-06-12 12:25] VITALS: BP 111/61; PULSE 61; RESP 16; O2SAT 96
[2024-06-12 14:16] VITALS: BP 118/76; PULSE 70; RESP 18; O2SAT 96
[2024-06-12] MEDS: methylPREDNISolone ACETATE 80MG/ML VIAL 80 MG (14:16)
[2024-06-12 14:18] VITALS: BP 118/76; PULSE 70; RESP 18; O2SAT 96
== END 2024-06-12 12:25 | disposition home or self-care (01) ==
PROVIDERS: PCP Physician Assistant; Visit Provider Nurse Anesthetist, Certified Registered
DX: M50.30 Other cervical disc degeneration, unspecified cervical region (principal); M54.12 Radiculopathy, cervical region; M96.1 Postlaminectomy syndrome, not elsewhere classified; Z96.82 Presence of neurostimulator
CPT/HCPCS: 62321; J1010; Q9966

== ENCOUNTER 2024-06-27 14:38 | Outpatient (POV) | payer MEDICARE, SELFPAY ==
[2024-06-27 14:57] VITALS: BP 119/62; PULSE 62; RESP 14; O2SAT 97; BMI 33.4
--- NOTE | 2024-06-27 15:13 | A.OFFVIS_ITS ---
[facility] Disclaimer: The information contained in this section may have been updated after the patient was seen, as this information can be updated by other users. Medical History Pacemaker Normal colonoscopy Kidney stones Osteoarthritis BPH (benign prostatic hyperplasia) GERD (gastroesophageal reflux disease) CVA (cerebral vascular accident) HTN (hypertension) HLD (hyperlipidemia) Surgical History History of colonoscopy History of inguinal hernia repair Hx of appendectomy Family History Other COPD (chronic obstructive pulmonary disease) Social History Smoking Status: Never smoker alcohol intake: never substance use type: denies use current occupational status: other Travel in the last 8 weeks: None PM Subjective & Objective Subjective Subjective:: Patient is a pleasant 73-year-old male who presents today for spinal cord stimulator adjustments as well as follow-up for cervical epidural steroid injection C6-C7 on 06/12/2024. Today he rates his pain a 4 out of 10. He denies any new falls or injuries. He does state that he did get approximately 80% improvement following this injection and feels like it is still working. He was also able to meet with [employer] public service representative for additional reprogramming. Patient is currently managed with tramadol 50 mg 3 times a day from our office. He denies any side effects from this medication. He does state that he is really only taking this primarily once a day and that on really bad days he will take it 2 times. Patient is unsure if he needs any refills. His Guru has been reviewed and is appropriate. Review of Systems: General: No recent weight changes, no fever, no sleep disturbances Respiratory: No cough, no shortness of air, no recurring pulmonary infections Cardiovascular/peripheral vascular: No chest pain, no palpitations, no edema, no shortness of breath Gastrointestinal: No new onset incontinence, normal bowel movements reported Genitourinary: No new onset incontinence Musculoskeletal: Left-sided numbness arm and leg Psychiatric: [Normal mood/affect] Neurological: [Denies weakness in extremities], [denies balance issues] Pain at rest (0-10 scale): 4 Objective Objective:: Physical Exam: General: Alert and oriented x3, no acute distress, pleasant and cooperative Lungs: Respirations even and unlabored, symmetrical chest expansion Eyes: PERRL Musculoskeletal: Flexion and extension of cervical [spine] somewhat guarded secondary to pain, [antalgic gait noted] Neurological: Speech clear, no gross sensory deficit Has patient had previous pain injection?: Yes Percent improvement in pain since last injection: 80% Conservative treatment options previously tried: Home exercise plan Length of tr eatment: Longer than 12 weeks Meds Home Medications and Allergies Home Medications ?Medication ?Instructions ?Recorded ?Confirmed ?Type atorvastatin 80 mg tablet 80 mg PO DAILY Cholesterol 08/05/23 06/27/24 History gabapentin 100 mg capsule 100 mg PO AM Pain 08/05/23 06/27/24 History magnesium oxide 400 mg PO DAILY 08/05/23 06/27/24 History sotalol 80 mg tablet 80 mg PO BID BLOOD PRESSURE 08/05/23 06/27/24 History tamsulosin 0.4 mg capsule 0.4 mg PO DIRECTED URINATION 08/05/23 06/27/24 History aspirin 81 mg capsule 81 mg PO DAILY 01/06/24 06/27/24 History gabapentin 300 mg capsule 300 mg PO PM 01/13/24 06/27/24 History (Neurontin) loratadine 10 mg tablet (Claritin) 10 mg PO NEEDED PRN Allergic 01/13/24 06/27/24 History Symptoms tramadol 50 mg tablet 50 mg PO TID #90 tabs 05/11/24 06/27/24 Rx New Prescriptions to Start Prescriptions: Allergies Allergy/AdvReac Type Severity Reaction Status Date / Time No Known Allergies Allergy Verified 05/11/24 14:32 Assessment and Plan *Assessment and plan (1) Degenerative disc disease, lumbar: Status: Acute Category: Medical Code(s): M51.369 - Other intervertebral disc degeneration, lumbar region without mention of lumbar back pain or lower extremity pain (2) Lumbar radiculopathy: Status: Acute Category: Medical Code(s): M54.16 - Radiculopathy, lumbar region (3) Degenerative disc disease, cervical: Status: Acute Category: Medical Code(s): M50.30 - Other cervical disc degeneration, unspecified cervical region (4) CVA (cerebral vascular accident): Status: Acute Qualifiers: CVA mechanism: unspecified Qualified Code(s): I63.9 - Cerebral infarction, unspecified Category: Medical Code(s): I63.9 - Cerebral infarction, unspecified (5) Cervical radiculopathy: Status: Acute Category: Medical Code(s): M54.12 - Radiculopathy, cervical region Plan Patient is doing really well currently between the cervical epidural and we will see how the updated time contour programming does with his stimulator. I will make sure that he does have refills on his tramadol and I am going to change the dosage to twice a day as he no longer needs the 3 times a day. Patient will return to clinic in 1 month for reevaluation of symptoms and plan of care. Patient has been instructed to contact the clinic with any concerns before the next appointment. Dr. Simon has reviewed this note and agrees with this plan of care. This note was dictated using voice recognition software and make contain errors or omissions. All injections are used with Lidocaine, Bupivacaine and Depo Medrol. Occasionally urine drug screen is needed to verify patient's compliance with our office pain contract. This is ordered based off specific treatments related to chronic pain with the potential to abuse certain medications.
== END 2024-06-27 23:59 | disposition home or self-care (01) ==
PROVIDERS: PCP Physician Assistant; Visit Provider Nurse Practitioner Family
DX: M51.16 Intervertebral disc disorders with radiculopathy, lumbar region (principal); M50.10 Cervical disc disorder with radiculopathy, unspecified cervical region; I63.9 Cerebral infarction, unspecified
CPT/HCPCS: 99212; G0463

== ENCOUNTER 2024-07-25 09:44 | Outpatient (POV) | payer MEDICARE, SELFPAY ==
--- NOTE | 2024-07-25 10:44 | A.OFFVIS_ITS ---
[facility] Disclaimer: The information contained in this section may have been updated after the patient was seen, as this information can be updated by other users. Medical History Pacemaker Normal colonoscopy Kidney stones Osteoarthritis BPH (benign prostatic hyperplasia) GERD (gastroesophageal reflux disease) CVA (cerebral vascular accident) HTN (hypertension) HLD (hyperlipidemia) Surgical History History of colonoscopy History of inguinal hernia repair Hx of appendectomy Family History Other COPD (chronic obstructive pulmonary disease) Social History Smoking Status: Never smoker alcohol intake: never substance use type: denies use current occupational status: other Travel in the last 8 weeks: None PM Subjective & Objective Subjective Subjective:: Patient is a pleasant 74-year-old male who presents today for 1 month follow-up. Today he rates his pain a 4 out of 10. He denies any new injury or trauma. He is does state that overall he is doing well with his [employer] stimulator as well as with the tramadol 50 mg 3 times a day. He does state typically he does more 1-2 times per day and feels like this does really help. He does also state that he has gotten the new machine that he stands on and it does almost like electrical shock sensations into his feet and it does help with his lower extremity pain. He denies any other changes from her last appointment. His Guru has been reviewed and is appropriate. Review of Systems: General: No recent weight changes, no fever, no sleep disturbances Respiratory: No cough, no shortness of air, no recurring pulmonary infections Cardiovascular/peripheral vascular: No chest pain, no palpitations, no edema, no shortness of breath Gastrointestinal: No new onset incontinence, normal bowel movements reported Genitourinary: No new onset incontinence Musculoskeletal: Low back pain, leg pain Psychiatric: [Normal mood/affect] Neurological: [Denies weakness in extremities], [denies balance issues] Pain at rest (0-10 scale): 4 Objective Objective:: Physical Exam: General: Alert and oriented x3, no acute distress, pleasant and cooperative Lungs: Respirations even and unlabored, symmetrical chest expansion Eyes: PERRL Musculoskeletal: Flexion and extension of lumbar [spine] somewhat guarded secondary to pain, [antalgic gait noted] Neurological: Speech clear, no gross sensory deficit Has patient had previous pain injection?: No Conservative treatment options previously tried: Home exercise plan Length of treatment: Longer than 12 weeks Meds Home Medications and Allergies Home Medications ?Medication ?Instructions ?Recorded ?Confirmed ?Type atorvastatin 80 mg tablet 80 mg PO DAILY Cholesterol 08/05/23 06/27/24 History gabapentin 100 mg capsule 100 mg PO AM Pain 08/05/23 06/27/24 History magnesium oxide 400 mg PO DAILY 08/05/23 06/27/24 History sotalol 80 mg tablet 80 mg PO BID BLOOD PRESSURE 08/05/23 06/27/24 History tamsulosin 0.4 mg capsule 0.4 mg PO DIRECTED URINATION 08/05/23 06/27/24 History aspirin 81 mg capsule 81 mg PO DAILY 01/06/24 06/27/24 History gabapentin 300 mg capsule 300 mg PO PM 01/13/24 06/27/24 History (Neurontin) loratadine 10 mg tablet (Claritin) 10 mg PO NEEDED PRN Allergic 01/13/24 06/27/24 History Symptoms tramadol 50 mg tablet 50 mg PO TID #90 tabs 05/11/24 06/27/24 Rx New Prescriptions to Start Prescriptions: Allergies Allergy/AdvReac Type Severity Reaction Status Date / Time No Known Allergies Allergy Verified 05/11/24 14:32 Assessment and Plan *Assessment and plan (1) Lumbar radiculopathy: Status: Acute Category: Medical Code(s): M54.16 - Radiculopathy, lumbar region (2) Degenerative disc disease, lumbar: Status: Acute Category: Medical Code(s): M51.369 - Other intervertebral disc degeneration, lumbar region without mention of lumbar back pain or lower extremity pain (3) Cervical radiculopathy: Status: Acute Category: Medical Code(s): M54.12 - Radiculopathy, cervical region (4) Degenerative disc disease, cervical: Status: Acute Category: Medical Code(s): M50.30 - Other cervical disc degeneration, unspecified cervical region (5) CVA (cerebral vascular accident): Status: Acute Qualifiers: CVA mechanism: unspecified Qualified Code(s): I63.9 - Cerebral in farction, unspecified Category: Medical Code(s): I63.9 - Cerebral infarction, unspecified Plan Patient is doing well with his current stimulator programming and does not require any additional interventions at this time. I will make sure he has refills on his tramadol. Patient will return to clinic in 3 months. Patient has been instructed to contact the clinic with any concerns before the next appointment. Dr. Simon has reviewed this note and agrees with this plan of care. This note was dictated using voice recognition software and make contain errors or omissions. All injections are used with Lidocaine, Bupivacaine and dexamethasone. Occasionally urine drug screen is needed to verify patient's compliance with our office pain contract. This is ordered based off specific treatments related to chronic pain with the potential to abuse certain medications.
[2024-07-25 11:04] VITALS: BP 113/66; PULSE 60; RESP 14; O2SAT 97; BMI 25.8
== END 2024-07-25 23:59 | disposition home or self-care (01) ==
PROVIDERS: PCP Physician Assistant; Visit Provider Nurse Practitioner Family
DX: M51.16 Intervertebral disc disorders with radiculopathy, lumbar region (principal); M50.10 Cervical disc disorder with radiculopathy, unspecified cervical region; I63.9 Cerebral infarction, unspecified
CPT/HCPCS: 99212; G0463

== ENCOUNTER 2024-10-24 10:08 | Outpatient (POV) | payer MEDICARE, SELFPAY ==
--- OUTSIDE RECORDS SUMMARY | 2024-10-24 10:10 | XMS_ITS | Data Portability ---
Author Organization [place] [facility] Address [address] [place] [address] Care Team Providers Care Production Welder Name Role Phone BANG SANTIZO Primary Care Provider RASHAD PIMENTEL Urologist Assessment No assessment recorded. Plan of Treatment Reminders Order Date Submit Date Provider Last Modified By Organization Details Last Modified Time Details Appointments None recorded. Lab influenza virus A + B + SARS-CoV-2 (COVID19) Ag panel, rapid IA, upper respiratory specimen 2024 025 [email or web address] 40 [facility], [address] [place] [address], [address], 5 16:44:36 lipid panel, serum [address]), [address] [place] [address] [place], [address], 5 07:02:23 HbA1c (hemoglobin A1c), blood [address]), [address] [place] [address] [place], [address], 5 07:02:23 CMP, serum or plasma 2024 025 [facility]), [address] [place] [address] [place], [address], 5 19:51:31 CBC w/ auto diff 2024 025 [facility]), [address] [place] [address] [place], [address], 5 18:13:41 vitamin D, 25-hydroxy, total, serum [address]), [address] [place] [address] [place], [address], 5 07:02:23 PSA, serum or plasma 2024 025 [facility]), [address] [place] [address] [place], [address], 5 19:51:34 Referral None recorded. Procedures injection/a spiration joint/bursa (PROC) - anterior aspect of the left shoulder was cleansed with a alcohol based solution. Injection of 80 mg of Depo-Medrol mixed with lidocaine into the anterior shoulder joint. Also into the biceps tendon and found out into the anterior labrum. Once this was completed the area was cleansed off and covered with a Band-Aid. 2023 024 [email or web address] Not available 4 07:08:07 Surgeries None recorded. Imaging None recorded. Medication Orders ipratropium 0.5 mg-albutero l 3 mg (2.5 mg base)/3 mL nebulizatio n soln 2024 025 [place] [facility], [address] [place], [address], 5 15:05:29 dexamethaso ne sodium phosphate 4 mg/mL injection solution 2024 025 [email or web address] [facility], [address] [place], [address], 5 14:57:41 ceftriaxone 1 gram solution for injection 2024 025 [email or web address] [facility], [address] [place], [address], 5 14:58:32 doxycycline hyclate 100 mg capsule 2024 025 [facility], [address] [place], [address], 5 15:04:35 Paxlovid 300 mg (150 mg x 2)-100 mg tablets in a dose pack 2024 025 [facility], [address] [place], [address], 5 14:47:28 atorvastati n 80 mg tablet 2024 025 [facility], [address] [place], [address], 5 10:58:10 Contour Next Test Strips 2024 025 [facility], [address] [place], [address], 5 16:40:53 sotalol 80 mg tablet 2024 025 [facility], [address] [place], [address], 5 14:53:40 tamsulosin 0.4 mg capsule 2024 025 [facility], [address] [place], [address], 5 14:53:54 gabapentin 100 mg capsule 2023 024 [facility], [address] [place], [address], 14:45:25 gabapentin 300 mg capsule 2023 024 [place] [facility], [address] [place], [address], 14:45:31 Depo-Medrol 80 mg/mL suspension for injection 2023 [email or web address] Not available 13:57:31 atorvastati n 80 mg tablet 2023 024 [place] [facility], [address] [place], [address], 11:28:11 Patient TargetsNo targets recorded. Patient Instructions Encounter Date Encounter Id Patient Instructions Last Modified By Organization Details Last Modified Time 02/01/2024 [id number] Very lengthy discussion regarding the probability of no improvement with the use of a brace for his lower extremity. I will be happy to refer him to [facility] if he wishes. He is going to speak with his about this. He was inquiring about the cost of the device and I am unable to give him any that information. [email or web address] Not available 02/01/2024 14:24:07 06/06/2024 [id number] he has nebulizer machine at home and I recommend that he start treatments 3-4 times daily. He was given a due set of nebulizer tubes at the office [email or web address] Not available 06/06/2024 15:26:13 Reason for Referral None Reported. Results Created Date Observation Date Name Description Value Unit Range Abnormal Flag Note LastModifiedBy Organization Detail LastModifiedTime 05/28/1905/28/2024 CBC WITH AUTO DIFF WBC 7.4 10 4.5-11 .5 Not Available [facility] (Lab) [address] [facility] [place], [address], 05/28/2024 18:13:41 05/28/19 25 05/28/2024 CBC WITH AUTO DIFF RBC 3.81 10 4.60-6 .00 low Not Available [facility] (Lab) [address] [facility] [place], [address], 05/28/2024 18:13:41 05/28/19 25 05/28/2024 CBC WITH AUTO DIFF hemoglobin 12.3 g/dL 14.0-1 8.0 low Not Available [facility] (Lab) [address] [facility] [place], [address], 05/28/2024 18:13:41 05/28/19 25 05/28/2024 CBC WITH AUTO DIFF hematocrit 38.9 % 40.0-5 4.0 low Not Available [facility] (Lab) [address] [facility] [place], [address], 05/28/2024 18:13:41 05/28/19 25 05/28/2024 CBC WITH AUTO DIFF MCV 102.1 fL 80-100 high Not Available [facility] (Lab) [address] [facility] [place], [address], 05/28/2024 18:13:41 05/28/19 25 05/28/2024 CBC WITH AUTO DIFF MCH 32.3 pg 26-32 high Not Available [facility] (Lab) [address] [facility] [place], [address], 05/28/2024 18:13:41 05/28/19 25 05/28/2024 CBC WITH AUTO DIFF MCHC 31.6 g/dL 32-36 low Not Available [facility] (Lab) [address] [facility] [place], [address], 05/28/2024 18:13:41 05/28/19 25 05/28/2024 CBC WITH AUTO DIFF RDW 13.2 % 11.5-1 4.5 Not Available [facility] (Lab) [address] [facility] [place], [address], 05/28/2024 18:13:41 05/28/19 25 05/28/2024 CBC WITH AUTO DIFF platelet count 115 10 150-45 0 low Not Available [facility] (Lab) [address] [facility] [place], [address], 05/28/2024 18:13:41 05/28/19 25 05/28/2024 CBC WITH AUTO DIFF mean platelet volume 11.9 fL 6.8-10 .2 high Not Available [facility] (Lab) [address] [facility] [place], [address], 05/28/2024 18:13:41 05/28/19 25 05/28/2024 CBC WITH AUTO DIFF manual differential NOT INDICA NITIN Not Available [facility] (Lab) [address] [facility] [place], [address], 05/28/2024 18:13:41 05/28/19 25 05/28/2024 CBC WITH AUTO DIFF ne% 46.3 % 50-70 low Not Available [facility] (Lab) [address] [facility] [place], [address], 05/28/2024 18:13:41 05/28/19 25 05/28/2024 CBC WITH AUTO DIFF lymphs 43.6 % 18-42 high Not Available [facility] (Lab) [address] [facility] [place], [address], 05/28/2024 18:13:41 05/28/19 25 05/28/2024 CBC WITH AUTO DIFF MO% 6.6 % 2-11 Not Available [facility] (Lab) [address] [facility] [place], [address], 05/28/2024 18:13:41 05/28/19 25 05/28/2024 CBC WITH AUTO DIFF eo% 3.0 % 1-3 Not Available [facility] (Lab) [address] [facility] [place], [address], 05/28/2024 18:13:41 05/28/19 25 05/28/2024 CBC WITH AUTO DIFF ba% 0.4 % 0.0-2. 0 Not Available [facility] (Lab) [address] [facility] [place], [address], 05/28/2024 18:13:41 05/28/19 25 05/28/2024 CBC WITH AUTO DIFF neutrophils (absolute) 3.4 K/uL 2.0-6. 9 Not Available [facility] (Lab) [address] [facility] [place], [address], 05/28/2024 18:13:41 05/28/19 25 05/28/2024 CBC WITH AUTO DIFF lymphocytes (absolute) 3.2 K/uL 0.6-3. 4 Not Available [facility] (Lab) [address] [facility] [place], [address], 05/28/2024 18:13:41 05/28/19 25 05/28/2024 CBC WITH AUTO DIFF monocytes (absolute) 0.5 K/uL 0.0-0. 9 Not Available [facility] (Lab) [address] [facility] [place], [address], 05/28/2024 18:13:41 05/28/19 25 05/28/2024 CBC WITH AUTO DIFF eosinophils (absolute) 0.2 K/uL 0.0-0. 7 Not Available [facility] (Lab) [address] [facility] [place], [address], 05/28/2024 18:13:41 05/28/19 25 05/28/2024 CBC WITH AUTO DIFF basophils (absolute) 0.03 K/uL 0.0-0. 2 Not Available [facility] (Lab) [address] [facility] [place], [address], 05/28/2024 18:13:41 05/28/19 25 05/28/2024 HEMOG LOBIN A1C hemoglobin A1C 6.4 % 4.3-6. 4 Not Available [facility] (Lab) [address] [facility] [place], [address], 05/28/2024 18:30:49 05/28/19 25 05/28/2024 COMPR EHENS PETR METAB OLIC PANEL sodium 140 mmol/ L 136-14 5 Not Available [facility] (Lab) [address] [facility] [place], [address], 05/28/2024 19:51:31 05/28/19 25 05/28/2024 COMPR EHENS PETR METAB OLIC PANEL potassium 4.7 mmol/ L 3.5-5. 1 Not Available [facility] (Lab) [address] [facility] [place], [address], 05/28/2024 19:51:31 05/28/19 25 05/28/2024 COMPR EHENS PETR METAB OLIC PANEL chloride 104 mmol/ L 98.0-1 07.0 Not Available [facility] (Lab) [address] [facility] [place], [address], 05/28/2024 19:51:31 05/28/19 25 05/28/2024 COMPR EHENS PETR METAB OLIC PANEL total CO2 36 mmol/ L 21-32 high Not Available [facility] (Lab) [address] [facility] [place], [address], 05/28/2024 19:51:31 05/28/19 25 05/28/2024 COMPR EHENS PETR METAB OLIC PANEL anion gap 4.7 mmol/ L 5.0-15 .0 low Not Available [facility] (Lab) [address] [facility] [place], [address], 05/28/2024 19:51:31 05/28/19 25 05/28/2024 COMPR EHENS PETR METAB OLIC PANEL glucose 125 mg/dL 70-120 high Not Available [facility] (Lab) [address] [facility] [place], [address], 05/28/2024 19:51:31 05/28/19 25 05/28/2024 COMPR EHENS PETR METAB OLIC PANEL BUN 14 mg/dL 7-18 Not Available [facility] (Lab) [address] [facility] [place], [address], 05/28/2024 19:51:31 05/28/19 25 05/28/2024 COMPR EHENS PETR METAB OLIC PANEL creatinine 1.3 mg/dL 0.8-1. 3 Not Available [facility] (Lab) [address] [facility] [place], [address], 05/28/2024 19:51:31 05/28/19 25 05/28/2024 COMPR EHENS PETR METAB OLIC PANEL BUN/creatini ne ratio 10.8 ratio 9-21 Not Available [facility] (Lab) [address] [facility] [place], [address], 05/28/2024 19:51:31 05/28/19 25 05/28/2024 COMPR EHENS PETR METAB OLIC PANEL estimated glom filtration rate 54 mL/mi n 60.0- low Not Available [facility] (Lab) [address] [facility] [place], [address], 05/28/2024 19:51:31 05/28/19 25 05/28/2024 COMPR EHENS PETR METAB OLIC PANEL calcium 10.1 mg/dL 8.6-9. 8 high Not Available [facility] (Lab) [address] [facility] [place], [address], 05/28/2024 19:51:31 05/28/19 25 05/28/2024 COMPR EHENS PETR METAB OLIC PANEL bilirubin, total 0.4 mg/dL 0.2-1. 0 USE OF THIS ASSAY IS NOT RECOM ELAINE D FOR PATIE NTS UNDER GOING TREAT MENT WITH ELTRO MBOPA G DUE TO THE POTEN TIAL FOR FALSE LY ELEVA NITIN RESUL TS. Not Available [facility] (Lab) [address] [facility] [place], [address], 05/28/2024 19:51:31 05/28/19 25 05/28/2024 COMPR EHENS PETR METAB OLIC PANEL AST (SGOT) 29 IU/L 15-37 Not Available [facility] (Lab) [address] [facility] [place], [address], 05/28/2024 19:51:31 05/28/19 25 05/28/2024 COMPR EHENS PETR METAB OLIC PANEL ALT (SGPT) 39 IU/L 12-78 Not Available [facility] (Lab) [address] [facility] [place], [address], 05/28/2024 19:51:31 05/28/19 25 05/28/2024 COMPR EHENS PETR METAB OLIC PANEL alk phos 155 IU/L 46-116 high Not Available [facility] (Lab) [address] [facility] [place], [address], 05/28/2024 19:51:31 05/28/19 25 05/28/2024 COMPR EHENS PETR METAB OLIC PANEL total protein 7.2 g/dL 6.4-8. 2 Not Available [facility] (Lab) [address] [facility] [place], [address], 05/28/2024 19:51:31 05/28/19 25 05/28/2024 COMPR EHENS PETR METAB OLIC PANEL albumin 3.3 g/dL 3.4-5. 0 low Not Available [facility] (Lab) [address] [facility] [place], [address], 05/28/2024 19:51:31 05/28/19 25 05/28/2024 COMPR EHENS PETR METAB OLIC PANEL globulin 3.9 g/dL 1.3-3. 5 high Not Available [facility] (Lab) [address] [facility] [place], [address], 05/28/2024 19:51:31 05/28/19 25 05/28/2024 COMPR EHENS PETR METAB OLIC PANEL alb/glob ratio 0.8 ratio 1.0-3. 9 low Not Available [facility] (Lab) [address] [facility] [place], [address], 05/28/2024 19:51:31 05/28/19 25 05/28/2024 COMPR EHENS PETR METAB OLIC PANEL osmolality, calculated 281 mOsm/ kg 272-29 5 Not Available [facility] (Lab) [address] [facility] [place], [address], 05/28/2024 19:51:31 05/28/19 25 05/28/2024 LIPID PANEL triglyceride s 108 mg/dL 1-150 Not Available [facility] (Lab) [address] [facility] [place], [address], 05/28/2024 19:51:33 05/28/19 25 05/28/2024 LIPID PANEL cholesterol 120 mg/dL 0-200 Not Available [facility] (Lab) [address] [facility] [place], [address], 05/28/2024 19:51:33 05/28/19 25 05/28/2024 LIPID PANEL HDL chol 36 mg/dL 35-60 Not Available [facility] (Lab) [address] [facility] [place], [address], 05/28/2024 19:51:33 05/28/19 25 05/28/2024 LIPID PANEL chol/HDL ratio 3 -4.44 Not Available [facility] (Lab) [address] [facility] [place], [address], 05/28/2024 19:51:33 05/28/19 25 05/28/2024 LIPID PANEL LDL (calculated) 62 mg/dL -130 Not Available [facility] (Lab) [address] [facility] [place], [address], 05/28/2024 19:51:33 05/28/19 25 05/28/2024 PROST ATE SPECI FIC AG (PSA) prostate specific antigen 0.3 NG/mL 0.13-4 .0 METHO DOLOG Y: IMMUN OASSA Y Not Available [facility] (Lab) [address] [facility] [place], [address], 05/28/2024 19:51:34 05/28/19 25 05/29/2024 VITAM IN D, 25-HY DROXY vitamin D, 25-hydroxy 90.9 NG/mL 30.0-1 00.0 Vitam in D defic iency has been defin ed by the Insti tute of Medic ine and an Endoc rine Socie ty pract ice guide line as a level of serum 25-OH vitam in D less than 20 ng/mL (1,2) . The Endoc rine Socie ty went on to furth er defin e vitam in D insuf ficie ncy as a level betwe en 21 and 29 ng/mL (2). 1. IOM (Inst itute of Medic ine). 2010. Adilene ry refer maria alejandrae jaylene es for calci um and D. Bonita vo [place]: The [facility] Press . 2. Mckenzie beatty MF, Wayne gtz [place], Jostin off-F kailaar i MENDOZA, et al. Evalu ation , treat ment, and preve ntion of vitam in D defic iency : an Endoc rine Socie ty clini brooke pract ice guide line. JCEM. 2010; 96(7) :1911 -30. Perfo rmed at: [facility] [place] [address] Lab Direc tor: Tevin casas PhD, Phone : [phone] Not Available [facility] (Lab) [address] [place] [address] , [place], [address], 05/29/2024 08:13:04 05/30/19 25 05/30/2024 influ lana virus A + B + SARS- CoV-2 (COVI D19) Ag panel , rapid IA, upper respi rator y speci men FLU A negati ve Not Available [address], [place], [address], 05/30/2024 15:47:28 05/30/19 25 05/30/2024 influ lana virus A + B + SARS- CoV-2 (COVI D19) Ag panel , rapid IA, upper respi rator y speci men FLU B negati ve Not Available [address], [address], 05/30/2024 15:47:28 05/30/19 25 05/30/2024 influ lana virus A + B + SARS- CoV-2 (COVI D19) Ag panel , rapid IA, upper respi rator y speci men SARS COV + SARS OV 2 positi ve Not Available [address], [address], 05/30/2024 15:47:28 Result Notes None recorded. Problems Name Problem SNOMED Code Status Onset Date Resolution Date Notes Provider Name and Address Organization Details Recorded Time Well controlled type 2 diabetes mellitus 304901967 Active 2021 Not Available [facility] 3 16:58:22 Mixed hyperlipid emia 795812763 Active 2021 Not Available [facility] 3 16:58:22 Benign hypertensi on 07011345 Active 2021 Not Available [facility] 3 16:58:22 History of calculus of kidney 323602073 Active 2021 Not Available [facility] 3 16:58:22 Diabetic peripheral neuropathy 447186082 Active 2021 Not Available [facility] 3 16:58:22 Benign prostatic hyperplasi a 592753230 Active 2021 Not Available [facility] 3 16:58:22 Gastroesop hageal reflux disease without esophagiti s 855864361 Active 2021 Not Available [facility] 3 16:58:22 Cerebrovas cular accident 300046847 Active 2021 Not Available [facility] 3 16:58:22 Fatigue 56752356 Active 2021 Not Available [facility] 3 16:58:22 Diabetes mellitus 96798135 Active 2021 Not Available [facility] 3 16:58:22 Cough 78975178 Active 2021 Not Available [facility] 3 16:58:22 Left hemiparesi s 966267061 Active 2021 Not Available [facility] 3 16:58:22 Type 2 diabetes mellitus 77854635 Active 2021 Not Available [facility] 3 16:58:22 Dizziness 892560436 Active 2021 Not Available [facility] 3 16:58:22 Candidiasi s of skin 26396618 Active 2022 Not Available [facility] 3 16:58:22 Osteoarthr itis of multiple joints 408148716 Active 2022 Not Available [facility] 3 16:58:22 Hyperlipid emia 70294447 Active 2022 Not Available [facility] 3 16:58:22 Lumbar radiculopa thy 554468006 Active 2022 Not Available [facility] 3 16:58:22 Chronic pain 17169554 Active 2022 Not Available [facility] 3 16:58:22 Pain in cervical spine 407285823 Active 2022 Bang Santizo NP [facility] [employer] [facility],[address], [address] , [place] - [facility] [place] 3 09:54:00 Neck pain 30691220 Active 2022 Annita Tika rebollar, [place] - [facility] & [place] 3 09:05:00 Cervical disc disorder with radiculopa thy 026223347 Active 2022 Bang Santizo NP [address] [employer] [facility], [address] , [place] [facility] & [place] 3 15:32:55 Pain of left shoulder joint 0550609818493 9109 Active 2022 Bang Santizo NP [address], [place], [address] , [facility] - [facility] & [place] 3 15:32:32 Compressio n fracture of lumbar spine 769510265 Active 2022 GIORGIO BENJAMIN [facility] [employer], [place], [address] , [facility] - [facility] - [place] & [place] 3 14:51:30 COVID-19 834844376 Active 2023 GIORGIO BENJAMIN [facility] [employer],[address], [place], [address] , [facility] - [facility] & [place] 4 15:19:06 Tendinitis of left rotator cuff 9507729220509 9101 Active 2023 GIORGIO BENJAMIN [facility] [employer],[address], [place], [address] , [facility] - [facility] & [place] 4 14:04:33 Hypomagnes emia 954805040 Active 2023 GIORGIO BENJAMIN [facility] [employer], [place], [address] , [facility] - [facility] & [place] 4 13:44:46 Left flank pain 770483170 Active 2023 GIORGIO BENJAMIN [facility] [employer],[address], [place], [address] , [facility] - [facility] & [place] 4 13:40:18 Impingemen t syndrome of left shoulder region 3500083476177 04 Active 2023 GIORGIO BENJAMIN [facility] [employer],[address], [place], [address] , [place] - [facility] & [place] 4 11:55:02 Pain following cerebrovas cular accident 583502411 Active 2023 GIORGIO BENJAMIN [facility] [employer], [place], [address] , [facility] & [place] 4 11:55:12 Essential hypertensi on 37827738 Active 2023 Mayela rebollar, [facility] [place] & [place] 4 10:54:49 Hypoglycem ia due to type 2 diabetes mellitus 3016901729469 03 Active 2023 GIORGIO BENJAMIN [facility] [employer] [facility],[address], [place], [address] , [facility] & [place] 4 11:37:42 Vitamin D deficiency 90389384 Active 2023 Isa rebollar [facility] [place] [facility] & [place] 4 11:43:17 Acute urinary tract infection 560466421 Active 2023 GIORGIO BENJAMIN [facility] [employer] [facility],[address] [place] [address], [address] , [facility] & [place] 4 11:16:06 Tear of skin 414785877 Active 2023 GIORGIO BENJAMIN [facility] [employer] [facility],[address] [place] [address], [address] , [facility] [place] 4 11:16:47 Pain of left knee joint 3185369061480 07 Active 2023 GIORGIO BENJAMIN [facility] [employer] [facility],[address] [place] [address], [address] , [facility] & [place] 4 11:18:36 Acute upper respirator y infection 95343555 Active 2024 GIORGIO BENJAMIN [facility] [employer] [facility],[address] [place] [address], [address] , [facility] - [facility] & [place] 5 14:54:37 Problem Notes None recorded. Procedures Surgical History Date Name Laterality Status Provider Name and Address Organization Details Recorded Time 07/14/19 23 Medicare Annual Wellness Visit Health Risk Assessment completed Kimberly SWEENEY [facility] 07/13/2022 10:41:25 Appendectomy completed Kimberly SWEENEY [facility] [place] 01/25/2022 08:47:56 Nl removal calculus completed Kimberly SWEENEY [facility] 01/25/2022 08:48:21 Imaging Results None recorded. Procedure Notes None recorded. Medical Equipment None Reported. Allergies No known drug allergies Medications Name Sig Start Date Stop Date Status Note LastModified by Organization Details LastModified Time compound drug 06/06 completed Not Available Not Available Not Available atorvastat in 40 mg tablet TAKE 1 TABLET BY MOUTH DAILY. 09/28 completed Not Available Not Available Not Available metformin 500 mg tablet TAKE 1 TABLET BY MOUTH TWICE DAILY. active Not Available Not Available No t Available atorvastat in 80 mg tablet TAKE 1 TABLET BY MOUTH ONCE A DAY. active Not Available Not Available No t Available doxycyclin e hyclate 100 mg capsule TAKE 1 CAPSULE BY MOUTH TWICE DAILY. active Not Available Not Available No t Available atorvastat in 20 mg tablet TAKE 1 TABLET BY MOUTH EVERY EVENING 03/24 completed Not Available Not Available Not Available ipratropiu m 0.5 mg-albuter ol 3 mg (2.5 mg base)/3 mL nebulizati on soln INHALE 3 MLS VIA NEBULIZE R 4 TIMES DAILY. active Not Available Not Available No t Available trazodone 50 mg tablet Take 1 tablet as needed by oral route. 11/08 completed Not Available Not Available Not Available sotalol 80 mg tablet TAKE (1) TABLET BY MOUTH TWICE A DAY. active Not Available Not Available No t Available glipizide ER 10 mg tablet, extended release 24 hr TAKE 1 TABLET BY MOUTH ONCE A DAY. 10/08 completed Not Available Not Available Not Available meloxicam 15 mg tablet TAKE 1 TABLET BY MOUTH ONCE DAILY. 11/27 completed Not Available Not Available Not Available prednisone 20 mg tablet TAKE (1) TABLET BY MOUTH TWICE A DAY. 04/11 completed Not Available Not Available Not Available glipizide ER 5 mg tablet, extended release 24 hr TAKE 1 TABLET BY MOUTH ONCE A DAY. 11/27 completed Not Available Not Available Not Available clopidogre l 75 mg tablet TAKE 1 TABLET BY MOUTH ONCE A DAY. 11/25 completed Not Available Not Available Not Available ciprofloxa jose 500 mg tablet TAKE 1 TABLET BY MOUTH EVERY 12 HOURS. 11/27 completed Not Available Not Available Not Available tramadol 50 mg tablet TAKE (1) TABLET BY MOUTH THREE TIMES DAILY. active Not Available Not Available No t Available Depo-Medro l 80 mg/mL suspension for injection Take 80 mg by injectio n route. 01/31 completed Not Available Not Available Not Available ceftriaxon e 1 gram solution for injection Take 1 g by injectio n route for 1 day. 2024 active Not Available Not Available Not Avai lable amoxicilli n 875 mg tablet TAKE 1 TABLET BY MOUTH EVERY 12 HOURS FOR 2 WEEKS 10/16 completed Not Available Not Available Not Available citalopram 20 mg tablet TAKE 1 TABLET BY MOUTH ONCE A DAY. 03/24 completed Not Available Not Available Not Available magnesium oxide 400 mg (241.3 mg magnesium) tablet Take 1 tablet 3 times a day by oral route for 90 days. 2023 active Not Available Not Available Not Avai lable tamsulosin 0.4 mg capsule TAKE (1) CAPSULE BY MOUTH ONCE A DAY. active Not Available Not Available No t Available dicyclomin e 20 mg tablet TAKE (1) TABLET BY MOUTH TWICE A DAY NEEDED. 04/29 completed Not Available Not Available Not Available meclizine 25 mg tablet TAKE 1 TABLET BY MOUTH EVERY 8 HOURS NEEDED FOR DIZZINES S. 11/27 completed Not Available Not Available Not Available cephalexin 500 mg capsule TAKE (1) CAPSULE BY MOUTH TWICE DAILY. 01/25 completed Not Available Not Available Not Available pantoprazo le 40 mg tablet,del ayed release Take 1 tablet every day by oral route. 05/10 completed Not Available Not Available Not Available oseltamivi r 75 mg capsule TAKE (1) CAPSULE BY MOUTH TWICE DAILY. 01/25 completed Not Available Not Available Not Available lisinopril 10 mg tablet 11/27 completed Not Available Not Available Not Available promethazi ne 25 mg tablet TAKE 1 TABLET EVERY 4-6 HOURS NEEDED 2023 active Not Available Not Available Not Avai lable nystatin-t riamcinolo ne 100,000 unit/g-0.1 % topical cream APPLY TO THE AFFECTED AREA(S) BY TOPICAL ROUTE 2 TIMES PER DAY IN THEMORNI NG AND EVENING 07/13 completed Not Available Not Available Not Available gabapentin 300 mg capsule TAKE 1 CAPSULE BY MOUTH AT BEDTIME active Not Available Not Available No t Available omeprazole 20 mg capsule,de layed release TAKE 1 CAPSULE BY MOUTH 30 MINUTES BEFORE MORNING MEAL 03/24 completed Not Available Not Available Not Available aspirin 81 mg chewable tablet Chew 1 tablet every day by oral route for 90 days. 11/25 completed Not Available Not Available Not Available gabapentin 100 mg capsule Take 1 capsule twice a day by oral route for 30 days. active pts states need the 100mg, but has plenty of the 300mg/t hanks Not Available Not Available Not Available ergocalcif emmanuel (vitamin D2) 1,250 mcg (50,000 unit) capsule Take 2 capsules every week by oral route. 2024 active Not Available Not Available Not Avai lable dexamethas one sodium phosphate 4 mg/mL injection solution Inject 2 mL by intramus cular route for 1 day. 2024 active Not Available Not Available Not Avai lable diltiazem 60 mg tablet TAKE (1) TABLET BY MOUTH TWICE A DAY. 03/24 completed Not Available Not Available Not Available glipizide 5 mg tablet TAKE (1) TABLET BY MOUTH TWICE A DAY. 03/24 completed Not Available Not Available Not Available amoxicilli n 875 mg-potassi um clavulanat e 125 mg tablet TAKE 1 TABLET TWICE DAILY 10/08 completed Not Available Not Available Not Available Celexa 09/27 completed Not Available Not Available Not Available diclofenac 1 % topical gel APPLY 2 GRAMS TO THE AFFECTED AREA(S) BY TOPICAL ROUTE 2 TIMES PER DAY 03/24 completed Not Available Not Available Not Available magnesium 400 mg (as magnesium oxide) capsule Take 1 capsule twice a day by oral route. 11/27 completed Not Available Not Available Not Available Contour Next Test Strips Check sugar once a day 2024 active Not Available Not Available Not Avai lable Eliquis 5 mg tablet TAKE (1) TABLET BY MOUTH TWICE A DAY. 05/03 completed Not Available Not Available Not Available Lancets,Ul tra Thin 26 gauge active Not Available Not Available Not Available Paxlovid 300 mg (150 mg x 2)-100 mg tablets in a dose pack TAKE 3 TABLETS BY MOUTH 2 TIMES DAILY FOR 5 DAYS. 06/06 completed Not Available Not Available Not Available Vitals Date Recorded Body height Body mass index (BMI) Body weight Body temperature Oxygen saturation Oxygen saturation in Arterial blood by Pulse oximetry Heart rate Systolic And Diastolic Provider Name and Address Organization Details Last Updated DateTime 5 167.64 cm 26.6 kg/m2 66642.7 4 g 98 [degF] 96 % 96 % 64 /min 108/70 mm[Hg] [facility] [place] 5 13:38:14 Date Recorded Body height Body mass index (BMI) Body weight Body temperature Oxygen saturation Oxygen saturation in Arterial blood by Pulse oximetry Heart rate Systolic And Diastolic Provider Name and Address Organization Details Last Updated DateTime 5 167.64 cm 26.6 kg/m2 31389.7 4 g 98.6 [degF] 96 % 96 % 74 /min 112/58 mm[Hg] Annita Rich [facility] & [place] 5 15:46:43 Date Recorded Body height Body mass index (BMI) Body weight Body temperature Oxygen saturation Oxygen saturation in Arterial blood by Pulse oximetry Respiratory rate Heart rate Systolic And Diastolic Provider Name and Address Organization Details Last Updated DateTime 5 167.64 cm 26.6 kg/m2 35928.7 4 g 97.1 [degF] 96 % 96 % 19 /min 80 /min 124/82 mm[Hg] Isa [facility] & [place] 5 14:47:02 Date Recorded Body height Body temperature Oxygen saturation Oxygen saturation in Arterial blood by Pulse oximetry Heart rate Systolic And Diastolic Provider Name and Address Organization Details Last Updated DateTime 4 167.64 cm 98 [degF] 95 % 95 % 65 /min 112/4 mm[Hg] Kimberly Rich [facility] & [place] 4 10:04:13 Date Recorded Body height Body mass index (BMI) Body weight Body temperature Oxygen saturation Oxygen saturation in Arterial blood by Pulse oximetry Heart rate Systolic And Diastolic Provider Name and Address Organization Details Last Updated DateTime 4 167.64 cm 32.3 kg/m2 12334.4 7 g 97.2 [degF] 95 % 95 % 62 /min 110/60 mm[Hg] Annita Villela [place] - [facility] - [place] & [place] 4 13:56:01 Social History Question Answer Notes LastModified by [employer] Details LastModified Time Tobacco Smoking Status Never Smoker Not Available [facility] 03/16/2022 15:46:38 What Is Your Level Of Caffeine Consumption? Occasional [email or web address] Information not available 05/25/2023 Sex: Unknown Functional Status Question Answer Note LastModified by [employer] Details LastModified Time Do you use any illicit or recreational drugs? No [email or web address]_[email or web address] Information not available 03/16/2022 Do you or have you ever used any other forms of tobacco or nicotine? No [email or web address] Information not available 05/25/2023 What is your level of alcohol consumption? None CHART_[email or web address] Information not available 03/16/2022 Mental Status None recorded. Family History Relationship Description Onset Age of this Age Resolved Age Notes LastModified by Organization Details LastModified Time Father Chronic obstructive pulmonary disease CHART_[email or web address] Not available 03/04 15:46:37 Mother Chronic obstructive pulmonary disease CHART_MERGE Not available 03/04 15:46:37 Medical History Condition Response Diabetes Y Other Y Hypertension Y Kidney Stones Y Immunizations Vaccine Type Date Status Note Provider Nam e and Address Organization Details Recorded Time COVID-19, mRNA, LNP-S, PF, 100 mcg/0.5mL dose or 50 mcg/0.25mL dose 04/17/2021 completed Not Available [facility] 3 16:58:22 Influenza, split virus, quadrivalent, PF 01/25/2022 completed Not Available [facility] 3 16:58:23 Influenza, split virus, quadrivalent, PF 12/13/2022 completed Bang Santizo NP [address] [place] [address],[address], [place], [address], [place] - [facility] - [place] & [place] 12/14/2022 09:46:49 COVID-19, mRNA, LNP-S, PF, 100 mcg/0.5mL dose or 50 mcg/0.25mL dose 03/17/2021 completed Not Available [facility] 4 13:10:43 COVID-19, mRNA, LNP-S, PF, 100 mcg/0.5mL dose or 50 mcg/0.25mL dose 03/29/2020 completed Not Available [facility] 4 13:10:43 COVID-19, mRNA, LNP-S, PF, 100 mcg/0.5mL dose or 50 mcg/0.25mL dose 03/29/2020 completed Not Available [facility] 4 13:10:43 Influenza, split virus, quadrivalent, PF 03/27/2021 completed Not Available [facility] 13:10:43 COVID-19, mRNA, LNP-S, PF, 100 mcg/0.5mL dose or 50 mcg/0.25mL dose 05/30/2020 completed Annita rebollar, [place] - [facility] - [place] & [place] 11/25/2022 09:34:08 COVID-19, mRNA, LNP-S, PF, 100 mcg/0.5mL dose or 50 mcg/0.25mL dose 06/27/2020 completed Annita Villela null, [place] - [facility] - [place] & [place] 11/25/2022 09:34:08 Influenza, MDCK, trivalent, PF 02/02/2024 completed Kimberly Balderas null, [place] - [facility] - [place] & [place] 02/02/2024 08:00:36 Past Encounters Encounter ID Performer Location Encounter Start Date Encounter Closed Date Diagnosis/Indication Diagnosis SNOMED-CT Code Diagnosis ICD10 Code Diagnosis Note [id number] EBER Martinez [facility] [address] [place] [address] 01/25/2022 08:29:53 01/25/2022 09:21:33 Benign hypertension 64507952 I10 Benign pro static hyperplasia 183249974 N40.1 Diabetic p eripheral neuropathy 975867013 E11.40 Gastroesop hageal reflux disease without esophagitis 840337510 K21.9 Mixed hyperlipidemia 267 466458 E78.2 Well contr olled type 2 diabetes mellitus 530290518 E11.9 Fatigue 75408958 R53.83 Administra tion of influenza vaccine 66397189 Z23 [id number] Bang Santizo NP [place] [address] [address] [place] [address] 02/15/2022 09:38:12 02/15/2022 10:31:47 Benign hypertension 29939021 I10 Mixed hyperlipidemia 267 904963 E78.2 Well contr olled type 2 diabetes mellitus 428302424 E11.9 [id number] Bang Santizo NP [place] [address] [address] [place] [address] 03/11/2022 10:49:31 03/11/2022 16:23:55 Cough 67918811 R05.9 Exposure t o SARS-CoV-2 868993338 Z20.822 Well contr olled type 2 diabetes mellitus 196893990 E11.9 Benign hypertension 1072 5009 I10 Cerebrovas cular accident 906018835 I63.9 [id number] Bang Santizo NP [place] [address] Linda simon [facility] [place] [address] 03/15/2022 10:59:24 03/15/2022 11:47:04 Left hemiparesis 690941296 G81.90 [id number] Bang Santizo NP [place] [address] [address] [facility] [place] [address] 03/22/2022 09:25:37 03/22/2022 10:03:36 Cerebrovascular accident 893691141 I63.9 Benign hypertension 1072 5009 I10 Well contr olled type 2 diabetes mellitus 500180103 E11.9 [id number] Wendy Varner DO [place] [address] [address] [facility] [place] [address] 04/29/2022 10:26:25 04/29/2022 11:09:57 Cerebrovascular accident 813607655 I63.9 Benign hypertension 1072 5009 I10 Well contr olled type 2 diabetes mellitus 014938704 E11.9 Benign pro static hyperplasia 536927642 N40.1 [id number] Wendy Varner [place] [address] [place] [address] 05/17/2022 09:51:24 05/17/2022 10:40:25 Benign hypertension 33435007 I10 Benign pro static hyperplasia 918075491 N40.1 Well contr olled type 2 diabetes mellitus 082083439 E11.9 Fatigue 70754682 R53.83 Mixed hyperlipidemia 267 292810 E78.2 Diabetic p eripheral neuropathy 423848801 E11.40 Candidiasis of skin 4988 3006 B37.2 Cerebrovas cular accident 433993204 I63.9 [id number] Wendy Varner [place] [address] [place] [address] 06/10/2022 08:45:20 06/10/2022 09:12:24 Well controlled type 2 diabetes mellitus 564262773 E11.9 Benign hypertension 1072 5009 I10 Mixed hyperlipidemia 267 680351 E78.2 [id number] [place] [address] [place] [address] 06/29/2022 10:16:20 06/29/2022 10:51:48 Cerebrovascular accident 514717767 I63.9 Osteoarthr itis of multiple joints 821392117 M15.9 Benign hypertension 1072 5009 I10 [id number] Wendy Wetzelton [place] [address] [place] [address] 07/13/2022 10:21:47 07/13/2022 10:57:22 Adult health examination 409468214 Z00.00 Benign hypertension 1072 5009 I10 Cerebrovas cular accident 259241367 I63.9 Diabetic p eripheral neuropathy 102939243 E11.40 Well contr olled type 2 diabetes mellitus 082538058 E11.9 Mixed hyperlipidemia 267 987324 E78.2 [id number] Wendy Varner DO [place] [address] Linda simon [facility] [place] [address] 10/08/2022 08:58:54 10/08/2022 09:42:59 Cerebrovascular accident 204119463 I63.9 Well contr olled type 2 diabetes mellitus 348816457 E11.9 Benign hypertension 1072 5009 I10 [id number] Wendy Winslow, DO [place] [address] [address]on [facility] [address] 11/08/2022 09:32:13 11/08/2022 10:33:41 Benign hypertension 00838717 I10 Benign pro static hyperplasia 806178391 N40.1 Mixed hyperlipidemia 267 095747 E78.2 Well contr olled type 2 diabetes mellitus 623939329 E11.9 Fatigue 30660577 R53.83 Chronic pain 51028403 G8 9.29 [id number] Wendy Varner [place] [address] [address]on [facility] [address] 11/25/2022 09:19:14 11/25/2022 10:31:57 Lumbar radiculopathy 411948220 M54.16 Pain in ce rvical spine 536166999 M54.2 [id number] DO [place] [address] [address]on [facility] [address] 12/02/2022 08:47:13 12/02/2022 08:47:46 Neck pain 03901970 M54.2 [id number] Wendy Varner DO [place] [address] [address]on [facility] [address] 12/13/2022 09:19:42 12/13/2022 10:06:04 Benign prostatic hyperplasia 537163938 N40.1 Immunization due 5981154 08 Z28.39 Well contr olled type 2 diabetes mellitus 961151932 E11.9 Cervical d isc disorder with radiculopathy 149049965 M50.10 [id number] Jhon Dasilva MD [place] [address] [place] [address] 01/17/2023 15:02:51 01/17/2023 15:43:58 Pain of left shoulder joint 0729623901 4780641 M25.512 Cerebrovas cular accident I63.9 Well contr olled type 2 diabetes mellitus 746323013 E11.9 Cervical d isc disorder with radiculopathy 654566992 M50.10 [id number] Jhon Dasilva MD [address] [place] [address] 03/24/2023 14:15:53 03/24/2023 14:49:12 Compression fracture of lumbar spine 629407649 M48.56XA Benign hypertension 1072 5009 I10 Cerebrovas cular accident I63.9 History of fall 22090274 9 Z91.81 History of cardiac pacemaker in situ 485491371 Z95.0 [id number] Jhon Dasilva MD [place] [address] [place] [address] 04/11/2023 14:41:27 04/11/2023 15:48:53 Cough 83182550 R05.9 COVID-19 491733986 U07.1 [id number] Jhon Dasilva MD [address] [address] 04/21/2023 13:06:02 04/21/2023 14:06:33 Pain of left shoulder joint 2602233408 7277132 M25.512 Benign hypertension 1072 5009 I10 Cerebrovas cular accident I63.9 Cervical d isc disorder with radiculopathy 789110055 M50.10 Diabetic p eripheral neuropathy 160021135 E11.40 Well contr olled type 2 diabetes mellitus 497543737 E11.9 Tendinitis of left rotator cuff 1483846062 0874787 M67.814 [id number] Jhon Dasilva MD [address] [address] 05/03/2023 13:03:12 05/03/2023 13:31:06 Benign prostatic hyperplasia 996452871 N40.0 Type 2 arnoldo betes mellitus 68814231 E11.21 Benign hypertension 1072 5009 I10 Cerebrovas cular accident 437729291 I63.9 Cervical d isc disorder with radiculopathy 682660702 M50.10 Diabetic p eripheral neuropathy 095923461 E11.40 Gastroesop hageal reflux disease without esophagitis 817534825 K21.9 Mixed hyperlipidemia 267 747048 E78.2 Left hemiparesis 3948774 00 G81.90 Osteoarthr itis of multiple joints 100262671 M15.9 Hypomagnesemia 725345795 E83.42 History of cardiac pacemaker in situ 123623712 Z95.0 [id number] Jhon Dasilva MD [address] [address] 05/04/2023 09:01:33 05/04/2023 09:21:08 Benign prostatic hyperplasia 257305224 N40.0 Type 2 arnoldo betes mellitus 19700190 E11.21 Benign hypertension 1072 5009 I10 Cerebrovas cular accident 201373429 I63.9 Cervical d isc disorder with radiculopathy 940690583 M50.10 Diabetic p eripheral neuropathy 995369282 E11.40 Gastroesop hageal reflux disease without esophagitis 109314980 K21.9 Mixed hyperlipidemia 267 323345 E78.2 Left hemiparesis 7308383 00 G81.90 Osteoarthr itis of multiple joints 170699876 M15.9 Hypomagnesemia 597193333 E83.42 History of cardiac pacemaker in situ 971460652 Z95.0 [id number] Jhon Dasilva MD [address] [address] 05/10/2023 13:06:29 05/10/2023 14:13:48 Left flank pain 223008134 R10.9 History of calculus of kidney 620331147 Z87.442 Cerebrovas cular accident 932699932 I63.9 [id number] Jhon Dasilva MD [address] [place] [address] 05/17/2023 13:06:58 05/17/2023 13:36:56 Cervical disc disorder with radiculopathy 884122232 M50.10 Pain of le ft shoulder joint 8705242035 6919351 M25.512 Left flank pain 42828234 9 R10.9 History of calculus of kidney 476934930 Z87.442 Hypomagnesemia 292136962 E83.42 [id number] Jhon Dasilva MD [address] [place] [address] 05/18/2023 09:46:26 05/18/2023 10:13:50 Hypomagnesemia 764283534 E83.42 [id number] Jhon Dasilva MD [address] [address] 05/25/2023 08:54:31 05/25/2023 09:15:31 Hypomagnesemia 153338484 E83.42 [id number] Jhon Dasilva MD [address] [address] 07/13/2023 09:52:30 07/13/2023 13:23:00 Cervical disc disorder with radiculopathy 600096246 M50.10 Type 2 arnoldo betes mellitus 77445398 E11.21 Pain of le ft shoulder joint 3897298447 4294645 M25.512 History of calculus of kidney 435254748 Z87.442 Impingemen t syndrome of left shoulder region 4218215210 64855 M75.42 Pain follo wing cerebrovascular accident 978180794 R52 [id number] Jhon Dasilva MD [address] [place] [address] 09/22/2023 10:45:56 09/22/2023 11:39:38 Cervical disc disorder with radiculopathy 870563053 M50.10 Essential hypertension 05436371 I10 Hypomagnesemia 193864527 E83.42 Hypoglycem ia due to type 2 diabetes mellitus 5820311829 93203 E11.649 Vitamin D deficiency 347 26387 E55.9 Fatigue 11613327 R53.83 [id number] Jhon Dasilva MD [address] [address] 10/17/2023 10:19:50 10/17/2023 15:12:48 Essential hypertension 25888647 I10 Acute urin harini tract infection 735950153 N39.0 History of fall 83888819 9 Z91.81 Tear of skin 675750781 T 14.8XXA Dizziness 859997144 R42 Benign hypertension 1072 5009 I10 Cerebrovas cular accident 539371735 I63.9 Well contr olled type 2 diabetes mellitus 898471580 E11.9 Pain of le ft knee joint 1808485682 57060 M25.327 [id number] Jhon Dasilva MD [address] [address] 11/28/2023 09:40:27 11/28/2023 10:11:59 Mixed hyperlipidemia 247143277 E78.2 Cervical d isc disorder with radiculopathy 674464154 M50.10 Well contr olled type 2 diabetes mellitus 905472181 E11.9 Benign pro static hyperplasia 295308879 N40.0 [id number] Jhon Dasilva MD [address] [address] 12/21/2023 09:56:30 12/21/2023 11:07:02 Mixed hyperlipidemia 144430269 E78.2 Cerebrovas cular accident 054985915 I63.9 Well contr olled type 2 diabetes mellitus 533801453 E11.9 Cervical d isc disorder with radiculopathy 092087930 M50.10 Benign hypertension 1072 5009 I10 Tendinitis of left rotator cuff 8589882621 2752823 M67.814 Pain of le ft shoulder joint 1328953429 9524099 M25.025 [id number] Jhon Dasilva MD [place] [address] 02/01/2024 13:45:11 02/01/2024 14:32:27 Cervical disc disorder with radiculopathy 440306684 M50.10 Benign hypertension 1072 5009 I10 Diabetic p eripheral neuropathy 043410575 E11.40 Well contr olled type 2 diabetes mellitus 968677542 E11.9 Cerebrovas cular accident 638003853 I63.9 Administra tion of influenza vaccine 60857852 Z23 [id number] Jhon Dasilva MD [address] [address] 05/28/2024 13:22:28 05/28/2024 14:32:04 Mixed hyperlipidemia 788548026 E78.2 Benign pro static hyperplasia 500183274 N40.0 History of cardiac pacemaker in situ 918847304 Z95.0 Type 2 arnoldo betes mellitus 83486422 E11.21 Benign hypertension 1072 5009 I10 Vitamin D deficiency 347 34542 E55.9 [id number] Jhno Dasilva MD [address] [address] 05/30/2024 15:34:51 05/30/2024 16:31:07 Cough 03369823 R05.9 Exposure t o Influenzavirus 081630204 Z20.828 COVID-19 628221341 U07.1 Cerebrovas cular accident 465565329 I63.9 Well contr olled type 2 diabetes mellitus 030807726 E11.9 [id number] Jhon Dasilva MD [address] [address] 06/06/2024 14:38:53 06/06/2024 14:58:53 Acute upper respiratory infection 30542000 J06.9 Cough 85000991 R05.9 COVID-19 254704805 U07.1 Health Concerns Section Related Observation LastModified by Organization Detai ls LastModified Time None Recorded Concern Status LastModified by Organization Details LastModified Time None Recorded Advance Directives Directive None Recorded Payers Insurance Date Sequence Insurance Name Policy Number Policy Severino Covered Member ID Severino Member ID Guarantor Name 06/06/2024 1 [place] Christopher Moore [id number] Christopher Mcadamssell 06/06/2024 2 [employer] (MEDICARE SUPPLEMENT) Christopher Moore [id number] Christopher Mcadamssell 07/13/2023 3 MEDIC[place] [employer] - [facility] Christopher Bergmanll [id number] Christopher Mcadamssell 06/06/2024 [place] [employer] - [facility] Christopher Bergmanll [id number] Christopher Moore Notes Date Note Type Note Provider Name and Address Organization Details Recorded Time 12/21/2023 text/html patient presents the office today with ongoing complaints of left shoulder pain. His pain has been present ever since he had a stroke. He is attended multiple sessions of physical therapy. He is seeing a pain management clinic. They are trying to get a pain stimulator approved through his insurance. He still has weakness in the left upper extremity. He can achieve about 30 of active forward flexion. Minimal internal and external rotation. No evidence of contractures. 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 Several months ago he had an injection in the shoulder and it did help his pain for some time. He has requesting an injection today. He does have history of diabetes. Currently taking metformin 500 mg twice a day. His last glucose A1c was on 09/22/2023. At that time he was therapeutic. No side effects to his medications. He does not need a refill today. Does have a history of magnesium deficiency. Takes Mag-Ox 1 tablet 3 times a day. He has been on this dose for a while. He will be due for lab assessment next month. No side effects to his medications. In addition to these problems he has history of hyperlipidemia which is being treated vitamin-D deficiency which is being treated and BPH which is being treated. He does have an irregular heart rate secondary to atrial fibrillation and takes sotalol for that but no side effects GIORGIO BENJAMIN [address] [place] [address] Drive,[address], [place], [address], [facility] 12/21/2023 14:36:09 02/01/2024 text/html patient presents the office today with complaints of having neck pain that extends into his hands. He has a history of a CVA with resulting cervical disc pathology. He currently takes gabapentin as well as tramadol. These are working well for him. His mobility is increasing since his CVA. No side effects to his medications. He does need a refill of his gabapentin. He has had a substantial CVA. He ambulates with use of a rolling walker. He is improving his function to the lower extremities. he wants to inquire about obtaining a brace to keep his leg working well. He states he thinks he can ambulate without the use of his rolling walker if he had a brace. He has had difficulty ever since having both of his CVAs which were pretty significant. He is still experiencing left upper extremity weakness and pain as well as lower extremity weakness and instability. He ambulates well with the use of a rolling walker. He has requesting a flu shot He has renal stones. He has a large almost staghorn calculus. GIORGIO BENJAMIN [address], [place], [address], [facility] & [place] 02/02/2024 07:51:42 05/28/2024 text/html patient presents the office today with complaints of having neck pain that extends into his hands. He has a history of a CVA with resulting cervical disc pathology. He currently takes gabapentin as well as tramadol. These are working well for him. His mobility is increasing since his CVA. No side effects to his medications. He does need a refill of his gabapentin. He has had a substantial CVA. He ambulates with use of a rolling walker. he has been wearing a knee brace that he bought off of a television advertisement. He feels as though it has doing a lot better. His mobility is increasing. He is history of hyperlipidemia. He does take atorvastatin 80 mg a day. He needs a refill and he is due for laboratory evaluation. Has history of diabetes. He is taking metformin. He also has a history of low magnesium and takes Mag oxide. He is being treated for vitamin-D deficiency and takes vitamin-D 2 capsules every week. Again these are all due for lab assessment GIORGIO BENJAMIN [address] [place] [address] Drive,[address], [place], [address], [facility] & [place] 05/29/2024 08:07:53 05/30/2024 text/html patient presents to the office today for evaluation. She is experiencing upper respiratory congestion sore throat. Postnasal drainage. Headache. Low-grade fevers. Body aches. overall he feels bad. He has a cough. States at times it is hard to breathe. He is very tired and run down. He does not believe he has been exposed to anything abnormal. He does not get out of his house however people do come to visit him who have had COVID and flu exposure. Has a history of a CVA. He ambulates with the use of a walker. Has a history of diabetes which is controlled. GIORGIO BENJAMIN [address] [place] [address] [address], [place], [address], [facility] & [place] 06/01/2024 08:01:21 06/06/2024 text/html patient presents the office today to follow-up on his COVID. He was experiencing shortness of breath coughing and wheezing. Start him on Paxlovid and he took 1-1/2 doses. Said he did not like the taste and he felt it gave him diarrhea so he quit taking the medicines. Today's visit he still complains of being tired and fatigued. He has a little short of breath with increased activity. He has a cough that is affecting quite a bit as well. Does have a history hypertension and he has had a CVA. He has an irregular heart rate. Takes sotalol without any side effects. Blood pressure today is 124/82 with a heart rate of 80. No complaints of chest pain. He does experience shortness of breath with activity GIORGIO BENJAMIN [address], [place], [address], [facility] & [place] 06/07/2024 07:51:36
--- OUTSIDE RECORDS SUMMARY | 2024-10-24 10:10 | XMS_ITS | Referral Summary ---
Author Organization [employer] ([place], [place], [place], [place]) Address [address] [place] [address] Care Team Providers Care Surtass Analyst Name Role Phone Rody Santizo APRN Primary Care Provider Allergies No known active allergies Medications Eliquis 5 MG tablet Take 1 tablet (5 mg total) by mouth 2 (two) times daily. 02/05/2023 Active atorvastatin (LIPITOR) 80 MG tablet Take 1 tablet (80 mg total) by mouth daily. 01/21/2023 Active Contour Next Test Strips Strp daily. 12/13/2022 Active gabapentin (NEURONTIN) 100 MG capsule Take by mouth. 12/13/2022 Active glipiZIDE (GLUCOTROL XL) 5 MG 24 hr tablet Take 1 tablet (5 mg total) by mouth 2 (two) times daily. 09/13/2022 Active Lancets,Ultra Thin 26 gauge Misc CHECK ONCE DAILY 12/13/2022 Active lisinopriL (PRINIVIL,ZESTR IL) 10 MG tablet Take 1 tablet (10 mg total) by mouth daily. 12/09/2022 Active metFORMIN (GLUCOPHAGE) 500 MG tablet Take 1 tablet (500 mg total) by mouth 2 (two) times daily. 12/24/2022 Active pantoprazole (PROTONIX) 40 MG tablet Take 1 tablet (40 mg total) by mouth daily. 12/09/2022 Active sotaloL (BETAPACE) 80 MG tablet Take 1 tablet (80 mg total) by mouth 2 (two) times daily. 02/18/2023 Active tamsulosin (FLOMAX) 0.4 mg Cap 24 hr capsule Take 1 capsule (0.4 mg total) by mouth daily. 12/13/2022 Active traMADoL (ULTRAM) 50 mg tablet Take 1 tablet (50 mg total) by mouth 2 (two) times daily as needed. Max Daily Amount: 100 mg 01/25/2023 Active cetirizine (ZyrTEC) 10 MG tablet Take 1 tablet (10 mg total) by mouth daily. Active gabapentin (NEURONTIN) 300 MG capsule Take 1 capsule (300 mg total) by mouth nightly. Max Daily Amount: 300 mg 05/17/2022 Active Active Problems Problem Noted Date Diagnosed Date Rotator cuff arthropathy of left shoulder 2022 Social History Tobacco Use Types Packs/Day Years Used Date Smoking Tobacco: Never Smokeless Tobacco: Never Tobacco Cessation:Counseling Given: Not Answered Alcohol Use Standard Drinks/Week Comments Never 0 (1 standard drink = 0.6 oz pur e alcohol) Food Insecurity Answer Date Recorded Food run out past 12 months Not on file 04/04 Food did not last past 12 months Not on file 04/15/2023 Employment Answer Date Recorded Help finding and keeping a job Not on file 0 04/15/2023 Family and Community Support Answer Lobo e Recorded Help with Day to Day Activities Not on file 04/15/2023 Feeling Lonely or Isolated Not on file 04/15 Educational Attainment Answer Date Abdiel rded Speak language other than Georgian at home Not on file 04/15/2023 Want help with school or training Not on file 04/15/2023 Substance Use Answer Date Recorded Used prescription meds for non-medical reasons N ot on file 04/15/2023 Used illegal drugs past 12 months Not on file 04/15/2023 Sex and Gender Information Value Date Recorded Sex Assigned at Not on file Legal Sex Male 7:57 AM CDT Gender Identity Not on file Sexual Orientation Not on file Last Filed Vital Signs Vital Sign Reading Time Taken Comments Blood Pressure 83/57 02/22/2023 9:20 AM EST Pulse 72 02/22/2023 9:20 AM EST Temperature - - Respiratory Rate 18 02/22/2023 9:20 AM EST Oxygen Saturation - - Inhaled Oxygen Concentration - - Weight 87.1 kg (192 lb) 02/22/2023 9:20 AM EST Height 167.6 cm (5' 6 ) 02/22/2023 9:20 AM EST Body Mass Index 30.99 02/22/2023 9:20 AM EST Plan of Treatment Not on file Insurance MEDICARE PART A B [facility] [employer] CLAIMS Care Teams Surtass Analyst Relationship Specialty Start Date End Date Rody Santizo APRN [address] [place] [address] PCP - General Nurse Practitioner 02/08/23
--- OUTSIDE RECORDS SUMMARY | 2024-10-24 10:10 | XMS_ITS | Clinical Summary ---
Author Organization [facility] Address [address] [place] [address] Care Team Providers Care Livestock Auctioneer Name Role Phone Rody Santizo APRN Primary Care Provider Giancarlo Cunha MD Unavailable [phone] Allergies No known active allergies Medications gabapentin (Neurontin) 100 MG capsule Take 1 capsule (100 mg) by mouth 2 (two) times a day. Morning and Noon 04/20/2022 Active gabapentin (Neurontin) 300 MG capsule Take 1 capsule (300 mg) by mouth every night. 05/17/2022 Active glipiZIDE (Glucotrol) 5 MG tablet TAKE (1) TABLET BY MOUTH TWICE A DAY. 05/17/2022 Active metFORMIN (Glucophage) 500 MG tablet TAKE (1) TABLET BY MOUTH TWICE A DAY. 05/21/2022 Active pantoprazole (Protonix) 40 MG EC tablet Take 1 tablet (40 mg) by mouth 1 (one) time each day. 05/17/2022 Active tamsulosin (Flomax) 0.4 MG 24 hr capsule TAKE (1) CAPSULE BY MOUTH ONCE A DAY. 04/29/2022 Active traZODone (Desyrel) 50 MG tablet Take 0.5 tablets (25 mg) by mouth at night if needed for sleep. 04/20/2022 Active magnesium oxide (Mag-Ox) 400 (240 Mg) MG tablet Take 1 tablet (400 mg) by mouth 3 (three) times a day. Active docusate sodium (Colace) 100 MG capsule Take 1 capsule (100 mg) by mouth 2 (two) times a day. Active cetirizine (ZyrTEC) 10 MG tablet Take 1 tablet (10 mg) by mouth 1 (one) time each day. Active traMADol (Ultram) 50 MG tablet 01/11/2023 Active Lancets Ultra Thin misc CHECK ONCE DAILY 12/13/2022 Active atorvastatin (Lipitor) 80 MG tablet Take 1 tablet (80 mg) by mouth 1 (one) time each day. 12/23/2022 Active sotalol (Betapace) 80 MG tablet Take 1 tablet (80 mg) by mouth 2 (two) times a day. 150 tablet 02/18/2023 Active glucose blood (Contour Next Test) test strip daily. 12/13/2022 Active Active Problems Problem Noted Date Diagnosed Date Hemiparesis affecting left side as late effect o f stroke 07/15/2023 Left arm pain 07/15/2023 Tachy-ad syndrome 05/02/2023 PAF (paroxysmal atrial fibrillation) 05/02/2023 Tendinitis of left rotator cuff 04/21/2023 COVID-19 04/11/2023 Compression fracture of lumbar vertebra 03/24/20 Rotator cuff arthropathy of left shoulder 2022 Left shoulder pain 01/17/2023 Cervical disc disorder with radiculopathy 2022 Neck pain 12/02/2022 Pain of cervical spine 11/25/2022 Chronic pain 11/08/2022 Lumbar radiculopathy 10/25/2022 Anxiety and depression 09/10/2022 Facial droop 09/07/2022 Osteoarthritis of multiple joints 06/29/2022 Candidiasis of skin 05/17/2022 Dizziness 03/24/2022 Left hemiparesis 03/15/2022 Cough 03/11/2022 Diabetes mellitus 02/08/2022 Stroke 01/25/2022 Benign prostatic hyperplasia 01/25/2022 Diabetic peripheral neuropathy 01/25/2022 Fatigue 01/25/2022 Gastroesophageal reflux disease without esophagi tis 01/25/2022 Benign hypertension 01/25/2022 Mixed hyperlipidemia 01/25/2022 Acute appendicitis, uncomplicated 12/24/2014 Calculus of kidney 12/12/2014 HTN (hypertension) 12/12/2014 Peptic ulcer disease 12/12/2014 Resolved Problems Problem Noted Date Diagnosed Date Resolved Date Type 2 diabetes mellitus, wi thout long-term current use of insulin 01/25/2022 07/15/2023 Immunizations Immunization Administration Dates Next Due Influenza, injectable, quadrivalent, preservativ e free 12/13/2022,01/25/2022 Social History Tobacco Use Types Packs/Day Years Used Date Smoking Tobacco: Never Smokeless Tobacco: Never Tobacco Cessation:Counseling Given: Not Answered Alcohol Use Standard Drinks/Week Comments Not Currently 0 (1 standard drink = 0.6 oz pur e alcohol) PHQ-2 Answer Date Recorded Patient Health Questionnaire-2 Score 0 07/22/2023 PHQ-2A Answer Date Recorded Patient Health Questionnaire-2 Score 0 06/02/2022 Sex and Gender Information Value Date Recorded Sex Assigned at Not on file Legal Sex Male 7:32 PM EDT Gender Identity Not on file Sexual Orientation Not on file Last Filed Vital Signs Vital Sign Reading Time Taken Comments Blood Pressure 94/67 07/22/2023 9:18 AM EDT Pulse 64 07/22/2023 9:18 AM EDT Temperature 36.7 C (98 F) 01/20/2023 10:35 AM EDT Respiratory Rate 14 01/20/2023 1:30 PM EDT Oxygen Saturation 94% 04/28/2023 1:41 PM EST Inhaled Oxygen Concentration - - Weight 74.8 kg (165 lb) 07/22/2023 9:18 AM EDT s tated Height 167.6 cm (5' 6 ) 07/22/2023 9:18 AM EDT Body Mass Index 26.63 07/22/2023 9:18 AM EDT Plan of Treatment Health Maintenance Due Date Last Done Comments [facility]-Hepatitis C Screening 1950 [facility]-Medicare Annual Wellness (AWV) 1950 [facility]-/Child/Adol SDOH Screenings 1950 Diabetes: Dental Exam 1960 [facility]- SDOH Screenings 1968 [facility]-Adult SDOH Screenings 1968 [facility]-DTaP,Tdap,and Td Vaccines (1 - Tdap) 1969 [facility]-Pneumococcal Vaccine: 50+ Years (1 of 2 - PCV) 1969 CT Colonography 07/19/1995 Colonoscopy 07/19/1995 FIT-DNA 07/19/1995 FIT 07/19/1995 FOBT 07/19/1995 Sigmoidoscopy 07/19/1995 [facility]-Colorectal Cancer Screening 07/19/1995 [facility]-Zoster Vaccines (1 of 2) 2000 [facility]-Diabetes: Hemoglobin A1C 03/08/2023 09/08/2022, 04/09/2022 [id number] Vaccine ( season) 2023 04/17/2021, 03/17/2021, 06/27/2020, Additional history exists [facility]-Depression Screening 07/21/2024 07/22/2023 [facility]-Influenza Vaccine (#1) 2024 12/13/2022, [facility]-RSV Vaccine: 60+ Years or (1 - 1-dose 75+ series) 2025 [facility]-Obesity Intervention Completed 024, 04/28/2023, 01/11/2023, Additional history exists HPV Vaccines Aged Out No longer eligi ble based on patient's age to complete this topic [facility]-HIB Vaccines Aged Out No longer e ligible based on patient's age to complete this topic [facility]-Hepatitis A Vaccines Aged Out No longer eligible based on patient's age to complete this topic [facility]-IPV Vaccines Aged Out No longer e ligible based on patient's age to complete this topic [facility]-Rotavirus Vaccines Aged Out No lo nger eligible based on patient's age to complete this topic Medical Devices Implanted Type Area Pharmaceutical Worker Device Identifier Shelf Expiration Date Model / Serial / Lot Lead [id number] Lead-Pace Catheter Deliv 4fr 38 - [id number] Implanted:Qty: 1 [facility]20[id number] 12/20/2024 [id number] / / [id number] Pacemaker [place] Xt Dr M[address] Dr01 - [id number] Implanted:Qty: 1 on 01/20/2023 [facility]-[id number] 06/29/2024 [id number] / [id number] / [id number] Lead 5076 Lead Bi Renata 52 - [id number] Implanted:Qty: 1 on 01/20/2023 by [facility]-[id number] 10/19/2024 [id number] / [id number] 01 [place] [address] [facility] Advance Directives * Full Code (Latest Code Status on File) Date Activated Date Inactivated Comments 01/20/2023 10:31 AM 01/20/2023 5:24 PM Question Answer Comments Patient has decision-making capacity? Yes Care Teams Livestock Auctioneer Relationship Specialty Start Date End Date Rody Santizo APRN [address] [place] [id number] PCP - General 06/02/22 Giancarlo Cunha MD [address] [place] [id number] Referring Physician Cardiology 11/24/22
--- OUTSIDE RECORDS SUMMARY | 2024-10-24 10:10 | XMS_ITS | Clinical Summary ---
Author Organization [employer] ([place], [place], [place], [place]) Address [address] [place] [address] Care Team Providers Care Overseer Kosher Kitchen Name Role Phone Rody Santizo APRN Primary [...] Rotator cuff arthropathy of left shoulder 2022 Family History Medical History Relation Name Comments Heart disease Other Relation Name Status Comments Other Social History Tobacco Use Types Packs/Day Years [...] Date Abdiel rded Speak language other than Tajik at home Not on file 04/15/2023 Want [...] 02/22/2023 9:20 AM EST Plan of Treatment Health Maintenance Due Date Last Done Comments CT Colonography 1950 Colonoscopy 1950 Colorectal Cancer Screening 1950 FOBT/FIT 1950 Fit-DNA (Cologuard) 1950 Sigmoidoscopy 1950 Depression Screening (12+) 1962 Hepatitis C Screening 1968 DTAP/TDAP/TD VACCINES (1 - Tdap) 1969 Pneumococcal 50+ years (1 of 1 - PCV) 2000 Shingles Vaccine (Zoster) (1 of 2) 2000 Medicare Initial AWV [id number] 11/03/2013 COVID-19 VACCINE ( season) 2023 04/17/2021, 06/27/2020, 05/30/2020 Tobacco Cessation Counseling and Screening (12+) 02/23/2024 02/22/2023 Falls Risk Screening 04/04/2024 Influenza Vaccine (#1) 2024 Respiratory Syncytial Virus (RSV) Adult or (1 - 1-dose 75+ series) [address] [place] [address] MEDICARE PART A B [facility] AAR HEALTH CLAIMS Care Teams Overseer Kosher Kitchen Relationship Specialty Start Date End Date Rody Santizo, MAINTENANCE ELECTRICIAN [address] [place] [address] PCP - General Nurse Practitioner 02/08/23
--- OUTSIDE RECORDS SUMMARY | 2024-10-24 10:11 | XMS_ITS | Clinical Summary ---
Author Organization [facility] Address [address] [place] [address] Care Team Providers Care Logistics Director Name Role Phone Rody Santizo APRN Primary Care Provider + Allergies No known active allergies Medications gabapentin (NEURONTIN) 100 MG capsule Take 3 capsules by mouth Every Night. 100MG in AM and 300MG at night Active metFORMIN (GLUCOPHAGE) 500 MG tablet Take 1 tablet by mouth 2 (Two) Times a Day With Meals. Active tamsulosin (FLOMAX) 0.4 MG capsule 24 hr capsule Take 1 capsule by mouth Daily. Active magnesium oxide (MAG-OX) 400 MG tablet Take 1 tablet by mouth 2 (Two) Times a Day. OTC Active acetaminophen (TYLENOL) 325 MG tablet Take 2 tablets by mouth Every 4 (Four) Hours As Needed for Mild Pain. 3 Active docusate sodium (Stool Softener) 100 MG capsule Take 1 capsule by mouth 2 (Two) Times a Day. 3 Active Additional Information Patient taking differently:100 mg Oral2 Times Daily PRN, Constipation, OTC, Reported on 02/24/2024 pantoprazole (PROTONIX) 40 MG EC tablet Take 1 tablet by mouth Daily. 3 Active Additional Information Patient not taking.Reported on 02/24/2024 lisinopril (PRINIVIL,ZESTR IL) 10 MG tablet Take 1 tablet by mouth Daily. 3 Active Additional Information Patient not taking.Reported on 02/24/2024 aspirin 81 MG EC tablet Take 1 tablet by mouth Daily. OTC Active clopidogrel (PLAVIX) 75 MG tablet Take 1 tablet by mouth Daily. Active Diclofenac Sodium (VOLTAREN) 1 % gel gel Apply 2 g topically to the appropriate area as directed 2 (Two) Times a Day As Needed. Active citalopram (CeleXA) 20 MG tablet Take 1 tablet by mouth Daily. Active Additional Information Patient not taking.Reported on 02/24/2024 glipizide (GLUCOTROL XL) 5 MG ER tablet Take 1 tablet by mouth 2 (Two) Times a Day. Active Additional Information Patient not taking.Reported on 02/24/2024 atorvastatin (LIPITOR) 80 MG tablet Take 1 tablet by mouth Every Night. Active polyethylene glycol (MIRALAX) 17 g packet Take 17 g by mouth Daily As Needed (Use if senna-docusate is ineffective). Active Additional Information Patient not taking.Reported on 02/24/2024 cetirizine (zyrTEC) 10 MG tablet Take 1 tablet by mouth Daily. Active apixaban (ELIQUIS) 5 MG tablet tablet Take 1 tablet by mouth 2 (Two) Times a Day. Active traMADol (ULTRAM) 50 MG tablet Take 1 tablet by mouth Every 6 (Six) Hours As Needed for Moderate Pain. Active sotalol (BETAPACE) 80 MG tablet Take 1 tablet by mouth 2 (Two) Times a Day. Active glucose blood test strip CHECL ONCE DAILY Ac tive Lancets misc CHECK ONCE DAILY Active loratadine (Claritin) 10 MG tablet Take 1 tablet by mouth Daily. Active Vitamin D, Cholecalciferol , (CHOLECALCIFERO L) 10 MCG (400 UNIT) tablet Take 1 tablet by mouth Daily. Active Active Problems Problem Noted Date Diagnosed Date Cervicalgia 02/24/2024 Radicular pain in left arm 02/24/2024 Anxiety and depression 09/10/2022 Stroke 09/08/2022 Facial droop 09/07/2022 History of stroke 04/12/2022 Type 2 diabetes mellitus, wi out long-term current use of insulin 04/09/2022 HTN (hypertension) 04/09/2022 Resolved Problems Problem Noted Date Diagnosed Date Resolved Date TIA (transient ischemic attack) 04/09/2022 04/12/2022 Slurred speech 04/08/2022 04/12/2022 Immunizations Immunization Administration Dates Next Due COVID-19 (MODERNA) 1st,2nd,3 rd Dose Monovalent 04/17/2021,06/27/2020,05/30/2020 Influenza, Unspecified 01/25/2022 Family History Medical History Relation Name Comments No Known Problems Mother Relation Name Status Comments Mother Social History Tobacco Use Types Packs/Day Years Used Date Smoking Tobacco: Never Passive Smoke Exposure: Never Smokeless Tobacco: Never Tobacco Cessation:Counseling Given: No Alcohol Use Standard Drinks/Week Comments Never 0 (1 standard drink = 0.6 oz pur e alcohol) AUDIT-C Answer Date Recorded Q1: How often do you have a drink containing alcohol? Never 09/07/2022 Q2: How many drinks containi ng alcohol do you have on a typical day when you are drinking? Patient does not drink Q3: How often do you have si x or more drinks on one occasion? Never 09/07/2022 PHQ-2 Answer Date Recorded Retired PHQ-9: Brief Depression Severity Measure Score 1 01/27/2023 Abuse Screen Answer Date Recorded Feels Unsafe at Home or Work/School no 09/07/2022 Feels Threatened by Someone no 09/2022 Does Anyone Try to Keep You From Having Contact with Others or Doing Things Outside Your Home? no 09/07/2022 Physical Signs of Abuse Present no 09/07/2022 Housing Stability Answer Date Recorded Current Living Arrangements home 09/2022 Potentially Unsafe Housing Conditions unable to assess 09/07/2022 Disabilities Answer Date Recorded Difficulty Concentrating, Remembering or Making Decisions no 09/07/2022 Difficulty Managing Errands Independently yes 09/07/2022 Education Answer Date Recorded Help with school or training? Not on file Preferred Language Malay 09/07/2022 PHQ-2 Answer Date Recorded Patient Health Questionnaire-2 Score 0 02/24/2024 Sex and Gender Information Value Date Recorded Sex Assigned at Not on file Legal Sex Male 6:40 PM EST Gender Identity Not on file Sexual Orientation Not on file Last Filed Vital Signs Vital Sign Reading Time Taken Comments Blood Pressure 124/74 02/24/2024 11:40 AM EST Pulse 67 02/24/2024 11:40 AM EST Temperature 36.6 C (97.8 F) 02/24/2024 11:40 AM EST Respiratory Rate 18 09/13/2022 9:30 AM EDT Oxygen Saturation 98% 02/24/2024 11:40 AM EST Inhaled Oxygen Concentration - - Weight 72.6 kg (160 lb) 02/24/2024 11:40 AM EST Height 167.6 cm (5' 5.98 ) 02/24/2024 11:[address] Body Mass Index 25.84 02/24/2024 11:40 AM EST Plan of Treatment Health Maintenance Due Date Last Done Comments DIABETIC EYE EXAM 1960 DIABETIC FOOT EXAM 1960 URINE MICROALBUMIN-CREATININ E RATIO (uACR) 1960 Pneumococcal Vaccine 50+ (1 of 2 - PCV) 1969 TDAP/TD VACCINES (1 - Tdap) 1969 COLOGUARD 07/19/1995 COLON CANCER SCREENING 5 YEA R SIGMOIDOSCOPY 07/19/1995 COLONOSCOPY 07/19/1995 COLORECTAL CANCER SCREENING 07/19/1995 CT COLONOGRAPHY 07/19/1995 FECAL OCCULT BLOOD TEST 07/19/1995 FIT Testing (1 year) 07/19/1995 ZOSTER VACCINE (1 of 2) 2000 HEPATITIS C SCREENING 05/12/2022 HEMOGLOBIN A1C 03/10/2023 09/08/2022, 04/09/2022 ANNUAL WELLNESS VISIT 07/14/2023 07/13/2022 LIPID PANEL 09/09/2023 09/08/2022, 04/09/2022 COVID-19 Vaccine ( - 2023-2 5 season) 2023 04/17/2021, 03/17/2021, 06/27/2020, Additional history exists INFLUENZA VACCINE 01/02/2025 02/02/2024, , 01/25/2022, Additional history exists Procedures Procedure Name Priority Date/Time Associated Diagnosis Comments HEMOGLOBIN A1C Routine 09/08/2022 5:47 AM EDT LIPID PANEL Routine 09/08/2022 5:47 AM EDT from Last 3 Months or Most Recently Relevant to Health Maintenance Results * (ABNORMAL) Hemoglobin A1c (09/08/2022 5:47 AM EDT) Hemoglobin A1C 6.40(H) 4.80 - 5.60 % 09/08/2022 10:05 AM EDT [facility] Blood Venipuncture / Unknown 09/08/2022 5:47 AM EDT 09/08/2022 6:53 AM EDT [facility] - 09/08/2022 10:05 AM EDT Hemoglobin A1C Ranges: Increased Risk for Diabetes 5.7% to 6.4% Diabetes >= 6.5% Diabetic Goal < 7.0% Vanesa Mac APRN LAB BLOOD ORDERABLES Final Result [facility]
[address] [place] [address], * (ABNORMAL) Lipid Panel (09/08/2022 5:47 AM EDT) Total Cholesterol 131 0 - 200 mg/dL 09/08/2022 7:32 AM EDT [facility] Triglycerides 120 0 - 150 mg/dL 09/08/2022 7:32 AM EDT [facility] HDL Cholesterol 27(L) 40 - 60 mg/dL 09/08/2022 7:32 AM EDT [facility] LDL Cholesterol 82 0 - 100 mg/dL 09/08/2022 7:32 AM EDT [facility] VLDL Cholesterol 22 5 - 40 mg/dL 09/08/2022 7:32 AM EDT [facility] LDL/HDL Ratio 2.96 09/08/2022 7:32 AM EDT [facility] Blood Venipuncture / Unknown 09/08/2022 5:47 AM EDT 09/08/2022 6:53 AM EDT [facility] - 09/08/2022 7:32 AM EDT Cholesterol Reference Ranges (U.S. Department of Health and Human Services ATP III Classifications) Desirable <200 mg/dL Borderline High 200-239 mg/dL High Risk >240 mg/dL Triglyceride Reference Ranges (U.S. Department of Health and Human Services ATP III Classifications) Normal <150 mg/dL Borderline High 150-199 mg/dL High 200-499 mg/dL Very High >500 mg/dL HDL Reference Ranges (U.S. Department of Health and Human Services ATP III Classifications) Low <40 mg/dl (major risk factor for CHD) High >60 mg/dl ('negative' risk factor for CHD) LDL Reference Ranges (U.S. Department of Health and Human Services ATP III Classifications) Optimal <100 mg/dL Near Optimal 100-129 mg/dL Borderline High 130-159 mg/dL High 160-189 mg/dL Very High >189 mg/dL Vanesa Mac APRN LAB BLOOD ORDERABLES Final Result [facility]
[address] [place] [address], from Last 3 Months or Most Recently Relevant to Health Maintenance Insurance MEDICARE A & B Member Subscriber Plan / Payer (Ef fective 2012-Present) Name:Christopher Moore Member ID:[id number] Relation to Subscriber:Self Name:Christopher Moore Subscriber ID:[id number] Payer ID:[id number] Group ID:Not on file Type:Not on file Address: [address] [employer] Advance Directives * CPR (Attempt to Resuscitate) (Latest Code Status on File) Date Activated Date Inactivated Comments 09/07/2022 1:46 PM 09/13/2022 4:17 PM Question Answer Comments Code Status (Patient has no pulse and is not breathing): CPR (Attempt to Resuscitate) Medical Interventions (Patie nt has pulse or is breathing): Full Support Comments: per patient * CPR (Attempt to Resuscitate) Date Activated Date Inactivated Comments 04/08/2022 11:19 PM 04/12/2022 5:03 PM Question Answer Comments Code Status (Patient has no pulse and is not breathing): CPR (Attempt to Resuscitate) Medical Interventions (Patie nt has pulse or is breathing): Full Support Level Of Support Discussed With: Patient Care Teams Logistics Director Relationship Specialty Start Date End Date Rody Santizo APRN [address] [facility] [address] [place] [address] PCP - General Family Medicine 06/08/22
--- NOTE | 2024-10-24 11:00 | EXP.PAIN.SOA ---
[facility] Disclaimer: The information contained in this section may have been updated after the patient was seen, as this information can be updated by other users. Medical History Pacemaker Normal colonoscopy Kidney stones Osteoarthritis BPH (benign prostatic hyperplasia) GERD (gastroesophageal reflux disease) CVA (cerebral vascular accident) HTN (hypertension) HLD (hyperlipidemia) Surgical History History of colonoscopy History of inguinal hernia repair Hx of appendectomy Family History Other COPD (chronic obstructive pulmonary disease) Social History Smoking Status: Never smoker alcohol intake: never substance use type: denies use current occupational status: other Travel in the last 8 weeks?: None PM Subjective & Objective Subjective Subjective:: Patient is a pleasant 74-year-old male who presents today for 3-month follow-up and medication refill. Today he rates his pain a 6 out of 10. He denies any new falls or injuries. He does state overall his stimulator is working well with no complaints. It has been a little while since he has had this reprogram. Patient does state he still has numbness and tingling in his upper extremities and he is complaining of some ear ringing along the left side and trouble swallowing from time to time. Patient is currently managed with tramadol 50 mg 3 times a day from our office. He denies any side effects. He does state that this medication does also help when he is having kidney stones. Patient has a longstanding history of chronic kidney stones. His Guru has been reviewed and is appropriate. Review of Systems: General: No recent weight changes, no fever, no sleep disturbances Respiratory: No cough, no shortness of air, no recurring pulmonary infections Cardiovascular/peripheral vascular: No chest pain, no palpitations, no edema, no shortness of breath Gastrointestinal: No new onset incontinence, normal bowel movements reported Genitourinary: No new onset incontinence Musculoskeletal: Chronic back pain Psychiatric: [Normal mood/affect] Neurological: [Denies weakness in extremities], [denies balance issues] Pain at rest (0-10 scale): 6 Objective Objective:: Physical Exam: General: Alert and oriented x3, no acute distress, pleasant and cooperative Lungs: Respirations even and unlabored, symmetrical chest expansion Eyes: PERRL Musculoskeletal: Flexion and extension of cervical [spine] somewhat guarded secondary to pain, [antalgic gait noted] Neurological: Speech clear, no gross sensory deficit Has patient had previous pain injection?: No Conservative treatment options previously tried: Home exercise plan Length of treatment: Longer than 12 weeks Meds Home Medications and Allergies Home Medications ?Medication ?Instructions ?Recorded ?Confirmed ?Type atorvastatin 80 mg tablet 80 mg PO DAILY Cholesterol 08/05/23 07/25/24 History gabapentin 100 mg capsule 100 mg PO AM Pain 08/05/23 07/25/24 History magnesium oxide 400 mg PO DAILY 08/05/23 07/25/24 History sotalol 80 mg tablet 80 mg PO BID BLOOD PRESSURE 08/05/23 07/25/24 History tamsulosin 0.4 mg capsule 0.4 mg PO DIRECTED URINATION 08/05/23 07/25/24 History aspirin 81 mg capsule 81 mg PO DAILY 01/06/24 07/25/24 History gabapentin 300 mg capsule 300 mg PO PM 01/13/24 07/25/24 History (Neurontin) loratadine 10 mg tablet (Claritin) 10 mg PO NEEDED PRN Allergic 01/13/24 07/25/24 History Symptoms tramadol 50 mg tablet 50 mg PO TID #90 tabs 07/25/24 Rx New Prescriptions to Start Prescriptions: Allergies Allergy/AdvReac Type Severity Reaction Status Date / Time No Known Allergies Allergy Verified 05/11/24 14:32 Assessment and Plan *Assessment and plan (1) Degenerative disc disease, lumbar: Status: Acute Category: Medical Code(s): M51.369 - Other intervertebral disc degeneration, lumbar region without mention of lumbar back pain or lower extremity pain (2) Lumbar radiculopathy: Status: Acute Category: Medical Code(s): M54.16 - Radiculopathy, lumbar region (3) Degenerative disc disease, cervical: Status: Acute Category: Medical Code(s): M50.30 - Other cervical disc degeneration, unspecified cervical region (4) Cervical radiculopathy: Status: Acute Category: Medical Code(s): M54.12 - Radiculopathy, cervical region (5) CVA (cerebral vascular accident): Status: Acute Qualifiers: CVA mechanism: unspecified Qualified Code(s): I63.9 - Cerebral infarction, unspecified Category: Medical Code(s): I63.9 - Cerebral infarction, unspecified Plan I did discuss with patient that I will send in a 3-month supply of the tramadol and we will plan on having him return in 3 months. I will also make sure that [employer] is present for this visit for additional reprogramming. Patient was counseled with his complaints of ear ringing and the possibility of trouble swallowing from time to time that I would recommend him be evaluated by ear nose and throat. We did also discuss possibility of GI referral. Patient's does state that they have an ear nose and throat doctor they are in [place] and they will reach out to them. I did correctional counselor her that if she ends up needing us to send a referral to please let us know. Patient agrees with this plan of care. Patient has been instructed to contact the clinic with any concerns before the next appointment. Dr. Simon has reviewed this note and agrees with this plan of care. This note was dictated using voice recognition software and make contain errors or omissions. All injections are used with Lidocaine, Bupivacaine and dexamethasone. Occasionally urine drug screen is needed to verify patient's compliance with our office pain contract. This is ordered based off specific treatments related to chronic pain with the potential to abuse certain medications.
[2024-10-24 11:31] VITALS: BP 115/76; PULSE 60; RESP 14; O2SAT 98; BMI 26.6
== END 2024-10-24 23:59 | disposition home or self-care (01) ==
PROVIDERS: PCP Physician Assistant; Visit Provider Nurse Practitioner Family
DX: M51.360 Other intervertebral disc degeneration, lumbar region with discogenic back pain only (principal); M51.16 Intervertebral disc disorders with radiculopathy, lumbar region; M50.10 Cervical disc disorder with radiculopathy, unspecified cervical region
CPT/HCPCS: 99212; G0463